=== PATIENT | male | born 1975 | race Caucasian/White ===

== ENCOUNTER 2016-10-03 17:09 | Emergency (ER) | payer MEDICAID ==
[~2016-10-03] VITALS: Ht 180.3 cm; Wt 113.4 kg
[~2016-10-03 17:09] MED LIST: DICLOFENAC SODI75 M2 PO; GABAPENTIN800 MG PO; HYDROCODONE-APA1 TA1 PO; IBU800 MG PO; LITHIUM CARB 3300 MG PO; NORCO 325 MG-101 TAB PO; NORVASC 5MG. TAB5 MG PO; OMEPRAZOLE40 MG PO; ZANAFLEX4 MG PO
--- OUTSIDE RECORDS SUMMARY | 2016-10-03 17:33 | External Medical Summary Rpt ---
Author Author , Organization [employer] Address Unknown Phone Unavailable Care Team Providers Care Evp Name Role Phone RODRIGUE HUSAIN Unavailable Unavailable AMJAD SOB, AMJAD SOB Unavailable Unavailable [facility] Unavailable Unavailable [facility], [facility] CHEO ADAMSON MD, PSC, Unavailable Unavailable CHEO ADAMSON MD, PSC ARNOLD MURPHY, ARNOLD Unavailable Unavailable MURPHY ARNOLD MURPHY, ARNOLD Unavailable Unavailable MURPHY [facility] Unavailable Unavailable MEDICAL GROUP, [facility] DANY, DANY Unavailable Unavailable CANDIDO MONTERO Unavailable Unavailable CANDIDO CRAIG Unavailable Unavailable JEFFREY STEVENSON, SHIREEN STEVENSON Unavailable Unavailable [facility] [place], Unavailable Unavailable [facility] Unavailable Unavailable [facility], [facility] Unavailable [facility] Unavailable [facility]available [facility], [facility], Unavailable Unavailable [facility]available [facility]available [facility], [facility] Unavailable Unavailable [facility], [facility] VIDHYA BRET, Unavailable Unavailable VIDHYA BRET NASEREN, NASREEN Unavailable Unavailable DEGENER, DEGENER Unavailable Unavailable DISANTIS CARLOS ALBERTO, Unavailable Unavailable DISANTIS CARLOS ALBERTO DUFF CARLOS ALBERTO, DUFF CARLOS ALBERTO Unavailable Unavailable ESCOTT EDW, ESCOTT Unavailable Unavailable EDW LEIDY, LEIDY Unavailable Unavailable LEIDY ABDULKADIR, LEIDY Unavailable Unavailable ABDULKADIR JAQUELIN RHO, JAQUELIN Unavailable Unavailable [facility] Un[facility] Un[facility], [facility], Unavailable Unavailable 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 DELONGSF NURSE PRACTITIONER [facility] Unavailable [facility]available [facility], [facility] Unavailable Unavailable [facility], [facility] Unavailable Unavailable [facility], [facility] ANITA CRI, ANIAT CRI Unavailable Unavailable [facility] Unavailable Unavailable [facility], [facility] Unavailable Unavailable [facility], [facility] Un[facility] Unavailable [facility], [facility], Unavailable Unavailable [facility], Unavailable Unavailable [facility] MATCHESWALA JERED, Unavailable Unavailable MATCHESWALA JERED SUKH, SUKH Unavailable Unavailable [facility] Unavailable Unavailable EMS, [facility] Unavailable Unavailable EMS, [facility] MENA THO, MENA Unavailable Unavailable THO RICE N., RICE N. Unavailable Unavailable SAJADI KAV, SAJADI Unavailable Unavailable KAV SCALF, SCALF Unavailable Unavailable BENÍTEZ III JAM, Unavailable Unavailable BENÍTEZ III JAM SKURKA VINOD, SKURKA Unavailable Unavailable VINOD SOKAN BAB, SOKAN BAB Unavailable Unavailable SOKAN BAB, SOKAN BAB Unavailable Unavailable [facility] Unavailable Unavailable GROUP,, [facility], [facility] Unavailable Unavailable GROUP,, [facility], [facility] Unavailable Unavailable EQUIP[facility], [facility] Unavailable Unavailable EQU[facility]ME, [facility] Unavailable Unavailable EMER[facility]ENCY [facility], [facility] BRANDON, BRANDON Unavailable Unavailable [facility], Unavailable Unavailable [facility] SWINEY, SWINEY Unavailable Unavailable WALKER FOR, WALKER Unavailable Unavailable FOR MILO ANGEL, MILO Unavailable Unavailable ANGEL DAVID ABDULKADIR, DAVID Unavailable Unavailable ABDULKADIR Purpose Continuity of Care Document - 12-29-2011 through 2016 Problems Code Diagnosis DOS Provider Status [id number] OTHER LONG 07-28-[address] [place] [address] [facility] E83.42 Hypomagnese 07-25-2016 rojelio 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 E87.6 Hypokalemia 07-25-2016 F10.129 Alcohol 07-25-2016 abuse with intoxicatio n, unspecified F14.10 Cocaine 07-25-2016 abuse, uncomplicat ed F17.200 Nicotine 07-25-2016 dependence, unspecified , uncomplicat ed F31.9 Bipolar 07-25-2016 disorder, unspecified G89.29 Other 07-25-2016 chronic pain G93.41 Metabolic 07-25-2016 encephalopa thy I10 Essential 07-25-2016 (primary) hypertensio n J18.9 Pneumonia, 07-25-2016 unspecified organism J96.00 Acute 07-25-2016 respiratory failure, unspecified whether with hypoxia or hypercapnia K21.9 Gastro-esop 07-25-2016 hageal reflux disease without esophagitis M54.9 Dorsalgia, 07-25-2016 unspecified M62.82 Rhabdomyoly 07-25-2016 sis N17.9 Acute 07-25-2016 kidney failure, unspecified T40.5X1A Poisoning 07-25-2016 by cocaine, accidental (unintentio nal), initial encounter T43.014A Poisoning 07-25-2016 by tricyclic antidepress ants, undetermine d, initial encounter W19.XXXA Unspecified 07-25-2016 fall, initial encounter [id number] PAIN IN 07-18-2016 [facility] R600 LOCALIZED 07-18-2016 [facility] EDEMA [facility] I459 CONDUCTION 07-17-2016 [facility]ORDER [facility] UNSPECIFIED [facility] I517 CARDIOMEGAL 07-17-2016 [facility] Y [facility] R000 TACHYCARDIA 07-17-2016 [facility] R4182 ALTERED 07-17-2016 [facility] M[facility] STATUS [facility] UNSPECIFIED R9431 ABNORMAL 07-17-2016 [facility] ELECTROCARD [facility] IOGRAM [facility] [id number] POISN UNS 07-17-2016 [facility] RX MEDS BIO SERV SUBSTANCE [facility] SLF-HRM INIT ENC Z4682 ENCOUNTER 07-17-2016 [facility] ADJUST [facility] NON-VASCULA R CATHETER Z950 PRESENCE OF 07-17-2016 [facility] CARDIAC [facility] PACEMAKER [facility] M7989 OTHER 07-16-2016 [facility] SPECIFIED SERV SOFT TISSUE [facility] DISORDERS N179 ACUTE 07-16-2016 [facility] K[facility] FAILURE [facility] UNSPECIFIED [id number] UNSPECIFIED 07-16-2016 [facility] FALL [facility] INITIAL [facility] ENCOUNTER O23484 PRIMARY 07-15-2016 [facility] OSTEOARTHRI SERV TIS LEFT FOUNDATION SHOULDER J9600 ACUTE 07-14-2016 [facility] NURSE RESPIRATORY PRACTITIONE FAIL UNS R GR HYPOXIA/HYP ERCAPNIA R410 DISORIENTAT 07-14-2016 [facility] ION [facility]AN UNSPECIFIED COGOVT R531 WEAKNESS 07-14-2016 [facility] COG[facility]T R918 OTHER 07-14-2016 [place] [facility] NONSPECIFIC SERV ABNORMAL [facility] FINDING OF LUNG FIELD Z9911 DEPENDENCE 07-14-2016 [facility] NURSE ON PRACTITIONE RESPIRATOR R GR VENTILATOR STATUS G8929 OTHER 06-08-[address] [facility] CHRONIC PHYSICIANS PAIN GROUP M519 UNS THOR 06-08-[address] [facility] THORACOLUMB PHYSICIANS AR GROUP LUMBOSACRAL IV DISC D/O M5417 RADICULOPAT 06-08-[address] [facility] HY PHYSICIANS LUMBOSACRAL GROUP REGION [id number] PAIN IN 05-12-[address] [facility] RIGHT ELBOW PHYSICIANS GROUP J069 ACUTE UPPER 05-04-2016 [facility] PH[facility] INFECTION UNSPECIFIED O25337 OTHER 05-04-2016 [facility] SYNOVITIS N EMERGENCY AND PHYS TENOSYNOVIT IS RIGHT FOREARM R112 NAUSEA WITH 03-27-2016 [facility] UNSPECIFIED MEDICAL GROUP [id number] PAIN IN 02-09-[address] [facility] RIGHT PHYSICIANS SHOULDER GROUP V72571 SPONDYLOSIS 12-15-2015 CHEO ADAMSON, W/O , PSC MYELOPATH/R ADICULOPATH Y LUMB RGN 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 Z5181 ENCOUNTER 12-15-2015 [facility] THERAPEUTIC LA DRUG LEVEL MONITORING R05 COUGH 11-04-[address] [facility] PHYSICIANS GROUP M479 SPONDYLOSIS 10-13-2015 [facility] UNSPECIFIED INC [id number] LACERATION 09-05-2015 [facility] W/O FB RT UPPER ARM INITIAL ENC R58 HEMORRHAGE 08-29-2015 [facility] CLASSIFIED [id number] ABRASION OF 08-29-[address] [facility] FOREARM INITIAL ENC I63931D LACERATION 08-29-2015 CANDIDO MURPHY W/O FOREIGN BODY RT FOREARM INITIAL M700FRT INTENTIONAL 08-29-2015 C[facility]O MURPHY SELF-HARM OT SHARP OBJECT INIT ENC M4316 SPONDYLOLIS 07-24-2015 [facility] REGION M5126 OTH 07-24-2015 [place] [facility] RAL DISC IMAGING ASS DISPLACEMEN T LUMBAR RGN M545 LOW BACK 07-01-2015 [facility] INC R56672 INCMPL ROT 06-19-2015 [place] [facility]RUPT JOINT LT SHOULDR SURGEO NOT TRAUMAT M06919 PAIN IN 06-10-2015 [facility] SHOULDER ASSOC M25913 OTHER 06-10-2015 [facility] SPECIFIED [facility] TENDON LEFT SHOULDER P13652 UNS ROT 06-10-2015 [facility] CUFF RADIOLOGY TEAR/RUPT ASSOC LT SHLDR NOT SPEC TRAUMAT M7582 OTHER 06-10-2015 [facility] SHOULDER [facility] LEFT SHOULDER R609 EDEMA 06-10-2015 [facility] UNSPECIFIED [facility] [id number] STRAIN MUSC 06-10-2015 [facility] TEND [facility] CUFF LT SHLDR INIT ENC V92443 PAIN IN 05-29-2015 [place] UNSPECIFIED FOOT & LIMB ANKLE CE Y71197V CONTUSION 05-29-2015 [place] UNS LESSER FOOT & TOES W/O ANKLE CE DAMAGE NAIL INIT E663 OVERWEIGHT 05-26-[address] [facility] PHYSICIANS GROUP E785 HYPERLIPIDE 05-26-2015 [facility] RO[facility]IO PHYSICIANS UNSPECIFIED LA I10 ESSENTIAL 05-26-[address] [facility] PRIMARY PHYSICIANS HYPERTENSIO GROUP N Z720 TOBACCO USE 05-26-[address] [facility] PHYSICIANS GROUP Z7689 PERSONS 05-26-2015 LAB [facility] ENCOUNTER [facility] Trendy Mondays [employer] OT CIRCUMSTANC ES P09640 PAIN IN 02-19-2015 [facility] [place] LEFT [facility]OT RADIOLOG[facility] [id number] CONTUSION 02-19-2015 SOK[facility] BAB OF LEFT FOOT INITIAL ENCOUNTER F84218T ABRASION 02-19-2015 [place] LEFT FOOT [facility] ENCOUNTER E245FFO CAUGHT 02-19-2015 [facility] BAB CRUSHED JAM/PINCHED BTWN MOV OBJ INIT ENC 2689 UNSPECIFIED 01-20-2015 [facility] VITAMIN D PHYSICIANS DEFICIENCY LA 4019 UNSPECIFIED 01-20-2015 [facility] ESSENTIAL PHYSICIANS HYPERTENSIO LA N V7644 SPECIAL 01-20-2015 [facility] SCREENING PHYS[facility]IANS MALIGNANT LA NEOPLASM OF PROSTATE 3384 CHRONIC 07-13-2014 [facility] PAIN SYNDROME 4011 ESSENTIAL 07-13-2014 [facility] HYPERTENSIO N, BENIGN 4619 ACUTE 07-13-2014 [facility] SINUSITIS, UNSPECIFIED 4659 ACUTE URIS 07-13-2014 [facility] OF UNSPECIFIED SITE 52292 UNSPECIFIED 07-09-2014 [facility] MENIERES DISEASE 95426 UNS 07-09-2014 [facility] GASTRITIS&G ASTRODUODIT IS W/O MENTION HEMORR 71095 ESOPHAGEAL 06-24-2014 LAFELY MURPHY REFLUX 61041 INSOMNIA 06-24-2014 [facility] MURPHY UNSPECIFIED 23019 BURN 06-24-2014 [facility] UNSPECIFIED DEGREE UNSPECIFIED SITE HAND 15115 CALCANEAL 04-08-2014 [facility] 7268 OTHER 04-08-2014 [facility] ENTHESOPATH PSC IES 60344 EXOSTOSIS 04-08-2014 [place] OF FOOT & UNSPECIFIED ANKLE CE SITE 7295 PAIN IN 04-08-2014 [facility] FOOT & TISSUES OF ANKLE CE LIMB V7284 UNSPECIFIED 04-04-2014 [facility] PRE-OPERATI GROUP, VE EXAMINATION 17349 OTHER JOINT 03-26-2014 [facility] NEC SHOULDER REGION 8406 SUPRASPINAT 03-26-2014 [facility] 90672 PAIN IN 03-08-2014 [facility] NE JOINT, ORTHOPAEDIC SHOULDER S PLC REGION 04357 DISORDER OF 03-01-2014 [facility] CARTILAGE UNSPECIFIED 462 ACUTE 02-21-2014 LAFELY MURPHY PHARYNGITIS 3671 MYOPIA 01-01-2014 [facility] 43644 PAIN IN 12-27-2013 [facility] JOINT, LOWER LEG 7242 LUMBAGO 12-27-2013 [facility] 5180 PULMONARY 09-29-2013 [facility] 5275 SIALOLITHIA 09-29-2013 [facility] SIS [facility] 7213 LUMBOSACRAL 09-29-2013 [facility] SPONDYLOSIS FOUNDATION WITHOUT MYELOPATHY 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-2013 [facility] N OF SERV CERVICAL FOUNDATION INTERVERTEB RAL DISC 61095 DEGEN 09-29-2013 [facility]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 01645 ALTERED 09-29-2013 [facility] MENTAL SERV STATUS FOUNDATION 64351 CLOSED 09-29-2013 [facility] FRACTURE OF SERV TWO RIBS FOUNDATION 19948 SUBDURAL 09-29-2013 [facility] HEMOR FLW SERV INJR W/O FOUNDATION OPN ICW UNS SOC 8730 OPEN WOUND 09-29-2013 [facility] SCALP SERV WITHOUT FOUNDATION [place]ATIO N 93627 OPEN WOUND 09-29-2013 [facility] FOREHEAD SERV WITHOUT FOUNDATION MENTION COMPLICATIO N 9308 FOREIGN 09-29-2013 [facility] BODY SERV OTHER&COMBI FOUNDATION DESTINY SITES EXTERNAL EYE E9889 INJURY 09-29-2013 [facility] UNSPEC SERV MEANS UNDET FOUNDATION ACC/PRPOSLY INFLICTED V714 OBSERVATION 09-29-2013 [facility] FOLLOWING SERV OTHER FOUNDATION ACCIDENT 9598 INJURY 09-28-2013 [facility] OTH&UNSPEC URBAN OTH SPEC COGOVT SITES INCL MULTIPLE Medications Na ND Rx Da Fi Fi Am Da Di Ph RX Ph St me C No te ll ll ou ys ag ar # ys at rm s nt no ma ic us Or Da si cy ia de te s n re d LI 00 05 06 60 30 00 HO Ac TH 05 -0 -0 .0 00 ME ti IU 42 5- 2- 00 06 TO ve M 52 20 20 08 WN CA 72 17 17 53 RB 5 99 PH ON AR AT MA E CY 30 0 OF MG CY CA NT P HI AN A GA 68 05 06 12 30 00 HO Ac BA 00 -0 -0 0. 00 ME ti PE 10 5- 2- 00 06 TO ve NT 00 20 20 0 08 WN IN 70 17 17 54 3 01 PH 80 AR 0 MA MG CY TA OF BL ET CY NT HI AN A IB 53 05 06 90 30 00 HO Ac UP 74 -0 -0 .0 00 ME ti RO 60 5- 2- 00 06 TO ve FE 46 20 20 08 WN N 60 17 17 54 80 5 02 PH 0 AR MG MA CY TA BL OF ET CY NT HI AN A TI 29 05 06 90 30 00 HO Ac ZA 30 -0 -0 .0 00 ME ti NI 00 5- 2- 00 06 TO ve DI 16 20 20 08 WN NE 91 17 17 54 0 03 PH HC AR L MA 4 CY MG OF TA BL CY ET NT HI AN A AM 68 05 06 30 30 00 HO Ac LO 38 -0 -0 .0 00 ME ti DI 20 5- 2- 00 06 TO ve PI 12 20 20 08 WN NE 30 17 17 54 5 04 PH BE AR SY MA LA CY TE OF 10 CY MG NT HI TA AN B A OM 68 05 06 30 30 00 HO Ac EP 46 -0 -0 .0 00 ME ti RA 20 5- 2- 00 06 TO ve ZO 39 20 20 08 WN LE 71 17 [address] AR MA 40 CY MG OF CA CY PS NT UL HI E AN A AM 00 05 06 30 30 00 HO Ac IT 78 -0 -0 .0 00 ME ti RI 11 5- 2- 00 06 TO ve PT 49 20 20 08 WN YL 00 17 17 53 IN 1 97 PH E AR HC MA L CY 10 0 OF MG CY TA NT B HI AN A IB 53 04 05 90 30 00 HO Ac UP 74 -0 -0 .0 00 ME ti RO 60 7- 5- 00 06 TO ve FE 46 20 20 07 WN N 60 17 17 93 80 5 25 PH 0 AR MG MA CY TA BL OF ET CY NT HI AN A LI 00 04 05 60 30 00 HO Ac TH 05 -0 -0 .0 00 ME ti IU 42 7- 5- 00 06 TO ve M 52 20 20 07 WN CA 72 17 17 93 RB 5 27 PH ON AR AT MA E CY 30 0 OF MG CY CA NT P HI AN A GA 68 04 05 12 30 00 HO Ac BA 00 -0 -0 0. 00 ME ti PE 10 7- 5- 06 TO ve NT 00 20 20 0 07 WN IN 70 17 17 93 3 29 PH 80 AR 0 MA MG CY TA OF BL ET CY NT HI AN A CH 00 04 05 90 30 00 HO Ac LO 83 -0 -0 .0 00 ME ti RP 20 7- 5- 06 TO ve RO 30 20 20 07 WN MA 40 17 17 93 ZI 0 30 PH NE AR MA 20 CY 0 MG OF TA CY BL NT ET HI AN A OM 68 04 05 30 30 00 HO Ac EP 46 -0 -0 .0 00 ME ti RA 20 7- 5- 00 06 TO ve ZO 39 20 20 07 WN LE 71 17 [address] AR MA 40 CY MG OF CA CY PS NT UL HI E AN A TI 29 04 05 90 30 00 HO Ac ZA 30 -0 -0 .0 00 ME ti NI 00 7- 5- 00 06 TO ve DI 16 20 20 08 WN NE 91 17 17 11 0 67 PH HC AR L MA 4 CY MG OF TA BL CY ET NT HI AN A AM 68 04 05 30 30 00 HO Ac LO 38 -0 -0 .0 00 ME ti DI 20 7- 5- 00 06 TO ve PI 12 20 20 08 WN NE 30 17 17 11 5 68 PH BE AR SY MA LA CY TE OF 10 CY MG NT HI TA AN B A AM 00 04 05 30 30 00 HO Ac IT 78 -0 -0 .0 00 ME ti RI 11 7- 5- 00 06 TO ve PT 49 20 20 08 WN YL 00 17 17 11 IN 1 69 PH E AR HC MA L CY 10 0 OF MG CY TA NT B HI AN A HY 00 03 04 [address] 60 -1 -1 .0 05 NT ti OC 33 9- 4- 00 22 UC ve OD 89 20 20 03 [place] ON 12 17 17 53 -A 1 41 CL CE IN TA IC AR NO PH PH AR MA 7. CY 5- 32 5 AM 00 03 04 30 30 00 HO Ac IT 78 -1 -0 .0 00 ME ti RI 11 0- 7- 00 06 TO ve PT 49 20 20 08 WN YL 00 17 17 11 IN 1 69 PH E AR HC MA L CY 10 0 OF MG CY TA NT B HI AN A AM 68 03 04 30 30 00 HO Ac LO 38 -1 -0 .0 00 ME ti DI 20 0- 7- 00 06 TO ve PI 12 20 20 08 WN NE 30 17 17 11 5 68 PH BE AR SY MA LA CY TE OF 10 CY MG NT HI TA AN B A TI 29 03 04 90 30 00 HO Ac ZA 30 -1 -0 .0 00 ME ti NI 00 0- 7- 00 06 TO ve DI 16 20 20 08 WN NE 91 17 17 11 0 67 PH HC AR L MA 4 CY MG OF TA BL CY ET NT HI AN A OM 68 03 04 30 30 00 HO Ac EP 46 -1 -0 .0 00 ME ti RA 20 0- 7- 00 06 TO ve ZO 39 20 20 07 WN LE 71 17 [address] AR MA 40 CY MG OF CA CY PS NT UL HI E AN A CH 00 03 04 90 30 00 HO Ac LO 83 -1 -0 .0 00 ME ti RP 20 0- 7- 00 06 TO ve RO 30 20 20 07 WN MA 40 17 17 93 ZI 0 30 PH NE AR MA 20 CY 0 MG OF TA CY BL NT ET HI AN A GA 68 03 04 12 30 00 HO Ac BA 00 -1 -0 0. 00 ME ti PE 10 0- 7- 00 06 TO ve NT 00 20 20 0 07 WN IN 70 17 17 93 3 29 PH 80 AR 0 MA MG CY TA OF BL ET CY NT HI AN A LI 00 03 04 60 30 00 HO Ac TH 05 -1 -0 .0 00 ME ti IU 42 0- 7- 00 06 TO ve M 52 20 20 07 WN CA 72 17 17 93 RB 5 27 PH ON AR AT MA E CY 30 0 OF MG CY CA NT P HI AN A IB 53 03 04 90 30 00 HO Ac UP 74 -1 -0 .0 00 ME ti RO 60 0- 7- 00 06 TO ve FE 46 20 20 07 WN N 60 17 17 93 80 5 25 PH 0 AR MG MA CY TA BL OF ET CY NT HI AN A TI 29 02 03 90 30 00 HO Ac ZA 30 -1 -1 .0 00 ME ti NI 00 0- 0- 00 06 TO ve DI 16 20 20 08 WN NE 91 17 17 11 0 67 PH HC AR L MA 4 CY MG OF TA BL CY ET NT HI AN A AM 68 02 03 30 30 00 HO Ac LO 38 -1 -1 .0 00 ME ti DI 20 0- 0- 00 06 TO ve PI 12 20 20 08 WN NE 30 17 17 11 5 68 PH BE AR SY MA LA CY TE OF 10 CY MG NT HI TA AN B A IB 53 02 03 90 30 00 HO Ac UP 74 -1 -1 .0 00 ME ti RO 60 0- 0- 00 06 TO ve FE 46 20 20 07 WN N 60 17 17 93 80 5 25 PH 0 AR MG MA CY TA BL OF ET CY NT HI AN A KE 45 02 03 12 20 00 HO Ac TO 80 -1 -1 0. 00 ME ti CO 20 0- 0- 00 06 TO ve NA 46 20 20 0 08 WN ZO 56 17 17 12 LE 4 00 PH AR 2% MA CY SH AM OF PO O CY NT HI AN A OM 68 02 03 30 30 00 HO Ac EP 46 -1 -1 .0 00 ME ti RA 20 0- 0- 00 06 TO ve ZO 39 20 20 07 WN LE 71 17 [address] AR MA 40 CY MG OF CA CY PS NT UL HI E AN A CH 00 02 03 90 30 00 HO Ac LO 83 -1 -1 .0 00 ME ti RP 20 0- 0- 00 06 TO ve RO 30 20 20 07 WN MA 40 17 17 93 ZI 0 30 PH NE AR MA 20 CY 0 MG OF TA CY BL NT ET HI AN A GA 68 02 03 12 30 00 HO Ac BA 00 -1 -1 0. 00 ME ti PE 10 0- 0- 00 06 TO ve NT 00 20 20 0 07 WN IN 70 17 17 93 3 29 PH 80 AR 0 MA MG CY TA OF BL ET CY NT HI AN A LI 00 02 03 60 30 00 HO Ac TH 05 -1 -1 .0 00 ME ti IU 42 0- 0- 00 06 TO ve M 52 20 20 07 WN CA 72 17 17 93 RB 5 27 PH ON AR AT MA E CY 30 0 OF MG CY CA NT P HI AN A AM 00 02 03 30 30 00 HO Ac IT 78 -1 -1 .0 00 ME ti RI 11 0- 0- 00 06 TO ve PT 49 20 20 08 WN YL 00 17 17 11 IN 1 69 PH E AR HC MA L CY 10 0 OF MG CY TA NT B HI AN A HY 00 02 03 [address] 60 -0 -0 .0 00 ME ti OC 33 7- 3- 00 02 TO ve OD 89 20 20 01 WN ON 12 17 17 28 -A 8 19 PH CE AR TA MA AR CY NO PH OF 7. CY 5- NT 32 HI 5 AN A MA 59 02 03 12 6 00 HO Ac ED 74 -0 -0 .0 00 ME ti NI 60 7- 3- 00 06 TO ve SO 17 20 20 08 WN NE 50 17 17 09 9 65 PH 20 AR MA MG CY TA OF BL ET CY NT HI AN A MA 64 02 03 30 14 00 HO Ac OC 98 -0 -0 .0 00 ME ti TO 00 7- 3- 00 06 TO ve ZO 30 20 20 08 WN NE 13 17 17 09 -H 0 66 PH C AR 2. MA 5% CY CR OF EA M CY NT HI AN A CE 68 02 03 21 7 00 HO Ac PH 18 -0 -0 .0 00 ME ti AL 00 7- 3- 00 06 TO ve EX 12 20 20 08 WN IN 20 17 17 09 2 67 PH 50 AR 0 MA MG CY CA OF PS UL CY E NT HI AN A AM 69 01 02 30 30 00 HO Ac LO 09 -1 -1 .0 00 ME ti DI 70 3- 0- 00 06 TO ve PI 12 20 20 07 WN NE 81 17 17 38 5 10 PH BE AR SY MA LA CY TE OF 10 CY MG NT HI TA AN B A TI 29 01 02 90 30 00 HO Ac ZA 30 -1 -1 .0 00 ME ti NI 00 3- 0- 00 06 TO ve DI 16 20 20 07 WN NE 91 17 17 38 0 08 PH HC AR L MA 4 CY MG OF TA BL CY ET NT HI AN A OM 68 01 02 30 30 00 HO Ac EP 46 -1 -1 .0 00 ME ti RA 20 3- 0- 00 06 TO ve ZO 39 20 20 07 WN LE 71 17 [address] AR MA 40 CY MG OF CA CY PS NT UL HI E AN A CH 00 01 02 90 30 00 HO Ac LO 83 -1 -1 .0 00 ME ti RP 20 3- 0- 00 06 TO ve RO 30 20 20 07 WN MA 40 17 17 93 ZI 0 30 PH NE AR MA 20 CY 0 MG OF TA CY BL NT ET HI AN A GA 68 01 02 12 30 00 HO Ac BA 00 -1 -1 0. 00 ME ti PE 10 3- 0- 00 06 TO ve NT 00 20 20 0 07 WN IN 70 17 17 93 3 29 PH 80 AR 0 MA MG CY TA OF BL ET CY NT HI AN A LI 00 01 02 60 30 00 HO Ac TH 05 -1 -1 .0 00 ME ti IU 42 3- 0- 00 06 TO ve M 52 20 20 07 WN CA 72 17 17 93 RB 5 27 PH ON AR AT MA E CY 30 0 OF MG CY CA NT P HI AN A IB 53 01 02 90 30 00 HO Ac UP 74 -1 -1 .0 00 ME ti RO 60 3- 0- 00 06 TO ve FE 46 20 20 07 WN N 60 17 17 93 80 5 25 PH 0 AR MG MA CY TA BL OF ET CY NT HI AN A AM 00 01 02 30 30 00 HO Ac IT 78 -1 -1 .0 00 ME ti RI 11 3- 0- 00 06 TO ve PT 49 20 20 07 WN YL 00 17 17 93 IN 1 26 PH E AR HC MA L CY 10 0 OF MG CY TA NT B HI AN A KE 45 01 02 12 14 00 HO Ac TO 80 -1 -1 0. 00 ME ti CO 20 3- 0- 00 06 TO ve NA 46 20 20 0 07 WN ZO 56 17 17 78 LE 4 95 PH AR 2% MA CY SH AM OF PO O CY NT HI AN A HY 00 01 02 [address] 60 -1 -0 .0 00 ME ti OC 33 1- 3- 00 02 TO ve OD 89 20 20 01 WN ON 03 17 17 25 -A 2 69 PH CE AR TA MA AR CY NO PH OF EN CY 5- NT 32 HI 5 AN A AM 68 12 01 30 30 00 HO Ac LO 38 -1 -1 .0 00 ME ti DI 20 6- 3- 00 06 TO ve PI 12 20 20 07 WN NE 30 16 17 38 5 10 PH BE AR SY MA LA CY TE OF 10 CY MG NT HI TA AN B A CH 00 12 01 90 30 00 HO Ac LO 83 -1 -1 .0 00 ME ti RP 20 6- 3- 00 06 TO ve RO 30 20 20 07 WN MA 40 16 17 76 ZI 0 04 PH NE AR MA 20 CY 0 MG OF TA CY BL NT ET HI AN A GA 68 12 01 12 30 00 HO Ac BA 00 -1 -1 0. 00 ME ti PE 10 6- 3- 00 06 TO ve NT 00 20 20 0 07 WN IN 70 16 17 76 3 03 PH 80 AR 0 MA MG CY TA OF BL ET CY NT HI AN A LI 00 12 01 60 30 00 HO Ac TH 05 -1 -1 .0 00 ME ti IU 42 6- 3- 06 TO ve M 52 20 20 07 WN CA 72 16 17 76 RB 5 02 PH ON AR AT MA E CY 30 0 OF MG CY CA NT P HI AN A AM 00 12 01 30 30 00 HO Ac IT 78 -1 -1 .0 00 ME ti RI 11 6- 3- 06 TO ve PT 49 20 20 07 WN YL 00 16 17 76 IN 1 08 PH E AR HC MA L CY 10 0 OF MG CY TA NT B HI AN A IB 53 12 01 90 30 00 HO Ac UP 74 -1 -1 .0 00 ME ti RO 60 6- 3- 00 06 TO ve FE 46 20 20 07 WN N 60 16 17 76 80 5 07 PH 0 AR MG MA CY TA BL OF ET CY NT HI AN A OM 68 12 01 30 30 00 HO Ac EP 46 -1 -1 .0 00 ME ti RA 20 6- 3- 00 06 TO ve ZO 39 20 20 07 WN LE 71 16 17 [address] AR MA 40 CY MG OF CA CY PS NT UL HI E AN A TI 29 12 01 90 30 00 HO Ac ZA 30 -1 -1 .0 00 ME ti NI 00 6- 3- 00 06 TO ve DI 16 20 20 07 WN NE 91 16 17 38 0 08 PH HC AR L MA 4 CY MG OF TA BL CY ET NT HI AN A Results Labs Lab Lab Date Result Refere Interp Status Commen Order Detail nces retati t Range on Drugs identified in Urine by Screen method (09-20-2016 16:00) Ampheta NEGATIV <1000 complet mine 017 E ed [Presen 16:00 ce] in Urine by Screen method 11-Hydr NEGATIV <50 complet oxy 017 E ed delta-9 16:00 tetrahy drocann abinol [Presen ce] in Unspeci fied specime n Magnesium SerPl-mCnc (07-17-2016 02:40) Magnesi 1.6 1.9-2.4 complet um 017 mg/dL ed SerPl-m 02:40 Cnc Ca-I SerPl ISE-sCnc (07-17-2016 02:40) Ca-I 4.2 4.6-5.1 complet SerPl 017 mg/dL ed ISE-sCn 02:40 c Sodium Ur-sCnc (07-16-2016 15:38) Sodium 156 complet Ur-sCnc 017 mmol/L ed 15:38 Creat Ur-mCnc (07-16-2016 15:38) Creat 78 complet Ur-mCnc 017 mg/dL ed 15:38 Phosphate SerPl-mCnc (07-16-2016 02:21) Phospha 4.2 2.5-4.5 complet te 017 mg/dL ed SerPl-m 02:21 Cnc Magnesium SerPl-mCnc (07-16-2016 02:21) Magnesi 1.8 1.9-2.4 complet um 017 mg/dL ed SerPl-m 02:21 Cnc Ca-I SerPl ISE-sCnc (07-16-2016 02:21) Ca-I 4.3 4.6-5.1 complet SerPl 017 mg/dL ed ISE-sCn 02:21 c MDRO Wnd (07-15-2016 04:38) Bacteri [id number] complet a XXX 017 00 not ed Anaerob 04:38 isolate e+Aerob d e Cult (qualif ier value) SCT NMDR NO MULTI DRUG RESISTA NT ORGANIS MS ISOLATE D L CC XXX NOTAP complet VC-aCnc 017 NOT ed 04:38 APPLICA BLE L Phosphate SerPl-mCnc (07-14-2016 22:58) Phospha 3.0 2.5-4.5 complet te 017 mg/dL ed SerPl-m 22:58 Cnc Prealb SerPl-mCnc (07-14-2016 22:58) Prealb 20.0 20-41 complet SerPl-m 017 mg/dL ed Cnc 22:58 Magnesium SerPl-mCnc (07-14-2016 22:58) Magnesi 1.9 1.9-2.4 complet um 017 mg/dL ed SerPl-m 22:58 Cnc CK SerPl-cCnc (07-14-2016 22:58) CK 373 U/L 49-320 complet SerPl-c 017 ed Cnc 22:58 Sodium Ur-sCnc (07-14-2016 22:58) Sodium > 250 complet Ur-sCnc 017 mmol/L ed 22:58 Creat Ur-mCnc (07-14-2016 22:58) Creat 206 complet Ur-mCnc 017 mg/dL ed 22:58 Ca-I SerPl ISE-sCnc (07-14-2016 22:58) Ca-I 3.9 4.6-5.1 complet SerPl 017 mg/dL ed ISE-sCn 22:58 c Lactate Bld-sCnc (07-14-2016 20:32) Lactate 1.9 complet 017 mmol/L ed Bld-sCn 20:32 c CK SerPl-cCnc (07-14-2016 14:14) CK 496 U/L 49-320 complet SerPl-c 017 ed Cnc 14:14 Salicylates SerPl-sCnc (07-14-2016 14:14) Salicyl < 0.3 0-25.0 complet ates 017 mg/dL ed SerPl-s 14:14 Cnc Acetamin SerPl-mCnc (07-14-2016 14:14) Acetami < 15.0 10-30 complet n 017 ug/mL ed SerPl-m 14:14 Cnc Ethanol Bld GC-mCnc (07-14-2016 14:14) Ethanol 225.0 NEGATIV complet Bld 017 mg/dL E ed GC-mCnc 14:14 Lactate Bld-sCnc (07-14-2016 14:14) Lactate 2.4 complet 017 mmol/L ed Bld-sCn 14:14 c Comprehensive metabolic 1998 panel in Serum or Plasma (12-29-2011 15:20) Sodium 135 136 - Low complet [Moles/ 012 mmol/L 145 ed volume] 15:20 in Serum or Plasma Potassi 4.0 3.50 - complet um 012 mmol/L 5.10 ed [Moles/ 15:20 volume] in Serum or Plasma Chlorid 100 98 - complet e 012 mmol/L 107 ed [Moles/ 15:20 volume] in Serum or Plasma TOTAL 28 21 - 32 complet CO2 012 mmol/L ed 15:20 ANION 11 5 - 15 complet GAP 012 mmol/L ed 15:20 Glucose 99 70 - complet 012 mg/dl 120 ed [Mass/v 15:20 olume] in Serum or Plasma Urea 11 7 - 18 complet nitroge 012 mg/dl ed n 15:20 [Mass/v olume] in Serum or Plasma Creatin 1.2 0.60 - complet ine 012 mg/dl 1.30 ed [Mass/v 15:20 olume] in Serum or Plasma AGE [age] yrs complet 012 ed 15:20 GFR 60 complet 012 ml/min ed 15:20 Calcium 8.5 8.50 - complet 012 mg/dl 10.10 ed [Mass/v 15:20 olume] in Serum or Plasma Bilirub 0.6 0.20 - complet in.tota 012 mg/dl 1.0 ed l 15:20 [Mass/v olume] in Serum or Plasma Asparta 19 IU/L 15 - 37 complet te 012 ed aminotr 15:20 ansfera se [Enzyma tic activit y/volum e] in Serum or Plasma Alanine 35 IU/L 30 - 65 complet 012 ed aminotr 15:20 ansfera se [Enzyma tic activit y/volum e] in Serum or Plasma Alkalin 111 50 - complet e 012 IU/L 136 ed phospha 15:20 tase [Enzyma tic activit y/volum e] in Serum or Plasma Protein 7.6 6.40 - complet 012 g/dl 8.20 ed [Mass/v 15:20 olume] in Serum or Plasma Albumin 4.0 3.40 - complet 012 g/dl 5.0 ed [Mass/v 15:20 olume] in Serum or Plasma GLOBULI 3.6 1.30 - High complet N 012 g/dl 3.50 ed 15:20 A/G 1.1 1.0 - complet RATIO 012 ratio 3.90 ed 15:20 BLDo complet 012 GLOMERU ed 15:20 LAR FILTRAT ION RATE INTERPR ETATION BLDx Normal complet 012 Range: ed 15:20 60 Ml/min/ 1.73 sq meters If complet 012 patient ed 15:20 is Elizabeth n, multipl y GFR by 1.120. *GFR complet 012 only ed 15:20 applies to adults over the age 18. CBC W DIFF AUTOMATED (12-29-2011 15:20) Leukocy 8.5 4.60 - complet roberto 012 K/uL 10.20 ed [#/volu 15:20 me] in Blood by Automat ed count Erythro 5.05 4.04 - complet cytes 012 M/uL 6.13 ed [#/volu 15:20 me] in Blood by Automat ed count Hemoglo 15.4 12.20 - complet bin 012 g/dL 18.10 ed [Mass/v 15:20 olume] in Blood Hematoc 44 % 37.70 - complet rit 012 53.70 ed [Volume 15:20 Fractio n] of Blood by Automat ed count Erythro 86.9 fL 80.0 - complet cyte 012 97.0 ed mean 15:20 corpusc ular volume [Entiti c volume] by Automat ed count Erythro 30.5 pg 27.0 - complet cyte 012 31.20 ed mean 15:20 corpusc ular hemoglo bin [Entiti c mass] by Automat ed count Erythro 35.1 31.80 - complet cyte 012 g/dL 35.40 ed mean 15:20 corpusc ular hemoglo bin concent ration [Mass/v olume] by Automat ed count Erythro 13.9 % 11.60 - complet cyte 012 14.80 ed distrib 15:20 ution width [Ratio] by Automat ed count Platele 186 142 - complet ts 012 K/uL 424 ed [#/volu 15:20 me] in Blood by Automat ed count Lymphoc 24.6 % 10.0 - complet ytes/10 012 50.0 ed 0 15:20 leukocy roberto in Blood by Automat ed count Monocyt 5.4 % 0.0 - complet es/100 012 12.0 ed leukocy 15:20 roberto in Blood by Automat ed count Neutrop 68.7 % 37.0 - complet hils.ba 012 80.0 ed nd 15:20 form/10 0 leukocy roberto in Blood by Manual count Eosinop 0.70 % 0.00 - complet hils/10 012 7.00 ed 0 15:20 leukocy roberto in Blood by Automat ed count Basophi 0.60 % 0.00 - complet ls/100 012 2.50 ed leukocy 15:20 roberto in Blood by Automat ed count Lymphoc 2.08 0.60 - complet ytes/10 012 K/uL 3.40 ed 0 15:20 leukocy roberto in Blood by Automat ed count Monocyt 0.46 0.00 - complet es/100 012 K/uL 0.90 ed leukocy 15:20 roberto in Blood by Automat ed count Neutrop 5.82 2.00 - complet hils.ba 012 K/uL 6.90 ed nd 15:20 form/10 0 leukocy roberto in Blood by Manual count Eosinop 0.06 0.00 - complet hils/10 012 K/uL 0.70 ed 0 15:20 leukocy roberto in Blood by Automat ed count Basophi 0.05 0.00 - complet ls/100 012 K/uL 0.20 ed leukocy 15:20 roberto in Blood by Automat ed count Manual NOT complet Diff 012 INDICAT ed 15:20 ED Urinalysis complete panel in Urine (12-29-2011 14:20) Color LT. NL: complet of 012 YELL Negativ ed Urine 14:20 e Appeara CLEAR NL: complet nce of 012 Negativ ed Urine 14:20 e Glucose NEG NL: complet 012 Negativ ed [Mass/v 14:20 e olume] in Urine by Test strip Bilirub NEG NL: complet in 012 Negativ ed [Presen 14:20 e ce] in Urine by Test strip Ketones NEG NL: complet 012 Negativ ed [Presen 14:20 e ce] in Serum or Plasma Specifi 1.020 NL: complet c 012 1.00 >= ed gravity 14:20 1.030 of Urine Hemoglo NEG NL: complet bin 012 Negativ ed [Presen 14:20 e ce] in Urine by Test strip pH of 7.0 NL: complet Urine 012 ed by Test 14:20 strip Protein NEG NL: complet 012 Negativ ed [Presen 14:20 e ce] in Urine by Test strip Urobili 0.2 NL: 0.2 complet nogen 012 - 1.0 ed [Mass/v 14:20 olume] in Urine by Test strip Nitrite NEG NL: complet 012 Negativ ed [Presen 14:20 e ce] in Urine by Test strip Leukocy NEG NL: complet roberto 012 Negativ ed [#/volu 14:20 e me] in Blood by Automat ed count MICROSC See complet OPIC 012 ed 14:20 Leukocy NEGATIV NL: complet roberto 012 E NEGATIV ed [#/volu 14:20 E me] in Blood by Automat ed count Erythro NEGATIV NL: complet cytes 012 E NEGATIV ed [#/volu 14:20 E me] in Blood by Automat ed count Epithel NEGATIV NL: complet ial 012 E NEGATIV ed cells 14:20 E [#/area ] in Urine sedimen t by Microsc opy high power field Bacteri NEGATIV NL: complet a 012 E NEGATIV ed [#/area 14:20 E ] in Urine sedimen t by Microsc opy high power field Mucus NEGATIV NL: complet [Presen 012 E NEGATIV ed ce] in 14:20 E Urine sedimen t by Light microsc opy Yeast NEGATIV NL: complet [Presen 012 E NEGATIV ed ce] in 14:20 E Unspeci fied specime n by Wet prepara tion Casts NEGATIV NL: complet 012 E NEGATIV ed 14:20 E Crystal NEGATIV NL: complet s 012 E NEGATIV ed [type] 14:20 E in Urine sedimen t by Light microsc opy METH OF VOIDED complet ROBERTH 012 ed 14:20 CULTURE NOT complet SETUP 012 INDIC ed 14:20 Procedures Procedure DOS Code Location Performer Comment DRUG TEST 69297 [facility] TAMEZ [facility]SMV [facility] QUAL DIR INC INC OPTICAL OBS PER DAY MRI LOWER 17147 [place] EXTREM 7 MEDICAL OTH/THN SERV JT W/O & FOUNDATIO W/[place] [address] [place] JT LOWER 7 MEDICAL EXTREM SERV W/O & FOUNDATIO W/CONTRAS N T MATRL ECG 79486 [place] MANDA ROUTINE 7 MEDICAL ECG SERV W/LEAST FOUNDATIO 12 LDS [place] [address] [place] NASREEN RETROPERI 7 MEDICAL TONEAL SERV REAL TIME FOUNDATIO W/IMAGE N COMPLETE RADEX 50563 [place] ANKLE 7 MEDICAL COMPLETE SERV MINIMUM 3 FOUNDATIO VIEWS N RADEX 18546 [place] DANY SHOULDER 7 MEDICAL COMPLETE SERV MINIMUM 2 FOUNDATIO VIEWS N GROUND A0425 TABITH[facility] TABITHA MILEAGE 7 [place] FAY[place] PER URBAN URBAN STATUTE COGOVT COGOVT MILE CRITICAL 16620 KMS[facility] DEGENER CARE 7 NURSE ILL/INJUR PRACTITIO ED NER GR PATIENT INIT 30-74 MIN AMB A0427 TABITHA TABITHA SERVICE 7 FAYETTE FAYETTE ALS URBAN URBAN EMERGENCY [place] [address] [place] ALHAJER[place] HEAD/BRAI 7 MEDICAL N W/O SERV CONTRAST FOUNDATIO MATERIAL N RADIOLOGI 71048 [place] SUKH C 7 MEDICAL EXAMINATI SERV ON CHEST FOUNDATIO SINGLE N VIEW FRONTAL DRUG TEST 98475 JOI TAMEZ PRSMV 7 [facility] QUAL DIR INC INC OPTICAL OBS PER DAY DRUG 04891 JOI TAMEZ SCREENING 7 [facility] OPIOIDS INC INC & OPIATE ANALOGS 5/MORE DRUG TEST 22326 JOI TAMEZ PRSMV 7 [facility] QUAL DIR INC INC OPTICAL OBS PER DAY RADEX 01352 [facility] [place] SCALF ELBOW 7 RADIOLOGY COMPLETE MINIMUM 3 VIEWS DRUG TST G0477 COMBINED COMBINED PRESUMP;C 6 PHYSICIAN PHYSICIAN PBL BEING S LA S LA READ DC OPT OBV ONLY THERAPEUT [address] [facility] LEIDY HOWARD 6 PHYSICIAN ABDULKADIR PROPHYLAC S GROUP TIC/DX INJECTION SUBQ/IM INJECTION J0696 [facility] LEIDY 6 PHYSICIAN ABDULKADIR CEFTRIAXO S GROUP NE SODIUM PER 250 MG INJECTION J1040 JOI TAMEZ 6 [facility] METHYLPRE INC INC DNISOLONE ACETATE 80 MG NJX 13330 [facility] SILVERIO CARLOS ALBERTO DX/THER 6 MD SNOW, AGT PVRT PSC FACET JT LMBR/SAC 3+ LEVEL NJX 27267 [facility] SILVERIO CARLOS ALBERTO DX/THER 6 MD SNOW, AGT PVRT PSC FACET JT LMBR/SAC 1 LEVEL NJX 16463 [facility] SILVERIO CARLOS ALBERTO DX/THER 6 MD SNOW, AGT PVRT PSC FACET JT LMBR/SAC 2ND LEVEL DRUG TST G0477 COMBINED COMBINED PRESUMP;C 6 PHYSICIAN PHYSICIAN PBL BEING S LA S LA READ DC OPT OBV ONLY DRUG TST G0477 JOI TAMEZ PRESUMP;C 6 [facility] PBL BEING INC INC READ DC OPT OBV ONLY GROUND A0425 [facility] STATUTE EMS EMS MILE AMBULANCE A0429 [facility] SERVICE 6 [facility] EMERGENCY EMS EMS TRANSPORT SMPL 92384 REY REY REPAIR 6 JEFFREY JEFFREY SCALP/NEC K/AX/WOODROW T/TRUNK 2.6-7.5CM 3D 44898 [facility] KEE RENDERING 6 MEDICAL BRET W/INTERP IMAGING & ASS POSTPROCE SS SUPERVISI ON MRI 13254 JOI TAMEZ SPINAL 6 [facility] CANAL INC INC LUMBAR W/O CONTRAST MATERIAL DRUG TST G0477 JOI TAMEZ PRESUMP;C 6 [facility] PBL BEING INC INC READ DC OPT OBV ONLY DRUG 21025 JOI TAMEZ SCREENING 6 [facility] OPIOIDS INC INC & OPIATE ANALOGS 5/MORE APPL 47919 JOI TAMEZ MODALITY 6 [facility] 1/> AREAS INC INC TRACTION MECHANICA L THERAPEUT 03446 JOI TAMEZ IC PX 1/> 6 [facility] AREAS INC INC EACH 15 MIN EXERCISES E-STIM G0283 JOI TAMEZ 1/> AREAS 6 [facility] OTH THAN INC INC WND CARE PART TX PLAN APPLICATI 62329 JOI TAMEZ ON 6 [facility] MODALITY INC INC 1/> AREAS HOT/COLD PACKS APPLICATI 69702 JOI TAMEZ ON 6 [facility] MODALITY INC INC 1/> AREAS HOT/COLD PACKS E-STIM G0283 JOI TAMEZ 1/> AREAS 6 [facility]OS[facility] OTH THAN INC INC WND CARE PART TX PLAN THERAPEUT 33038 JOI TAMEZ IC PX 1/> 6 [facility] AREAS INC INC EACH 15 MIN EXERCISES APPL 74026 JOI TMAEZ MODALITY 6 [facility] 1/> AREAS INC INC TRACTION MECHANICA L ARTHROCEN 96232 [facility] PAREKHIS 6 BONE & BONE & ASPIR&/IN JOINT JOINT J MAJOR SURGEO SURGEO JT/BURSA W/O US INJECTION J1040 [facility] FUCHS 6 BONE & KAV METHYLPRE JOINT DNISOLONE SURGEO ACETATE 80 MG APPL 48385 JOI TAMEZ MODALITY 6 [facility] 1/> AREAS INC INC TRACTION MECHANICA L THERAPEUT 34557 JOI TAMEZ IC PX 1/> 6 [facility] AREAS INC INC EACH 15 MIN EXERCISES E-STIM G0283 JOI TAMEZ 1/> AREAS 6 [facility]OS[facility] OTH THAN INC INC WND CARE PART TX PLAN APPLICATI 67163 JOI TAMEZ ON 6 [facility] MODALITY INC INC 1/> AREAS HOT/COLD PACKS APPLICATI 45464 JOI TAMEZ ON 6 [facility] MODALITY INC INC 1/> AREAS HOT/COLD PACKS MANUAL 72922 JOI TAMEZ THERAPY 6 [facility] TQS 1/> INC INC REGIONS EACH 15 MINUTES E-STIM G0283 JOI TAMEZ 1/> AREAS 6 [facility] OTH THAN INC INC WND CARE PART TX PLAN THERAPEUT 40729 JOI TAMEZ IC PX 1/> 6 [facility] AREAS INC INC EACH 15 MIN EXERCISES THERAPEUT 40634 JOI TAMEZ IC PX 1/> 6 [facility] AREAS INC INC EACH 15 MIN EXERCISES E-STIM G0283 JOI TAMEZ 1/> AREAS 6 [facility]OS[facility] OTH THAN INC INC WND CARE PART TX PLAN APPLICATI 87236 JOI TAMEZ ON 6 [facility] MODALITY INC INC 1/> AREAS HOT/COLD PACKS APPL 36810 JOI TAMEZ MODALITY 6 [facility] 1/> AREAS INC INC TRACTION MECHANICA L ARTHROCEN 58201 [facility] CENTRAL TESIS 6 RASTAFARIAN RASTAFARIAN ASPIR&/IN HOSP HOSP J MAJOR JT/BURSA W/O US FLUOROSCO 54739 [facility] BENÍTEZ PIC 6 RADIOLOGY III JAM GUIDANCE ASSOC NEEDLE PLACEMENT [place] ANY 15219 [facility] RICE N. JT UPPER 6 RADIOLOGY EXTREMITY ASSOC W/O & W/CONTR MATRL THERAPEUT 93663 JOI JOI IC PX 1/> 6 [facility] AREAS INC INC EACH 15 MIN EXERCISES APPLICATI 70588 JOI JOI ON 6 [facility] MODALITY INC INC 1/> AREAS HOT/COLD PACKS E-STIM G0283 JOI JOI 1/> AREAS 6 [facility]OS[facility] OTH THAN INC INC WND CARE PART TX PLAN PHYSICAL 25565 JOI JOI THERAPY 6 [facility] EVALUATIO INC INC N RADEX 57613 [place] FOOT 6 FOOT & VINOD COMPLETE ANKLE CE MINIMUM 3 [place] [address] COMBINED COMBINED FREE 6 PHYSICIAN PHYSICIAN THYROXINE S LA S LA DRUG TST G0477 JOI TAMEZ PRESUMP;C 6 [facility] PBL BEING INC INC READ DC OPT OBV ONLY LIPID 38632 COMBINED COMBINED PANEL 6 PHYSICIAN PHYSICIAN S LA S LA DRUG 01632 LAB NAOMY LAB NAOMY SCREEN 6 ELIZABETH ELIZABETH QUANTITAT HOLDINGS HOLDINGS JENNA LITHIUM RADEX 85102 [place] SAJADI SHOULDER 6 BONE & KAV COMPLETE JOINT MINIMUM 2 SURGEO VIEWS AMBULANCE A0429 [facility] SERVICE 5 [facility] EMERGENCY EMS EMS TRANSPORT GROUND A0425 [facility] MILEAGE 5 [facility] STATUTE EMS EMS MILE RADEX 16870 [facility] [place] JAQUELIN FOOT 5 RADIOLOGY RHO COMPLETE MINIMUM 3 [place] [address] COMBINED COMBINED FREE 5 PHYSICIAN PHYSIC[place] [address] COMBINED COMBINED TRIIODOTH 5 PHYSICIAN PHYSICIAN YRONINE S LA S LA T3 [place] [address] [place] [address] COMBINED COMBINED TESTOSTER 5 PHYSICIAN PHYSICIAN ONE TOTAL S LA S LA LIPID 59972 COMBINED COMBINED PANEL 5 PHYSICIAN PHYSICIAN S LA S LA PROSTATE G0103 COMBINED COMBINED CANCER 5 PHYSICIAN PHYSICIAN SCREENING S LA S LA ; PSA TEST RESECTION 14657 [facility] CONDYLE 4 FOOT & VINOD DISTAL ANKLE CE END PHALANX EACH TOE ANES OPEN 81761 ANESTHESI IYER GRAHAM PROC 4 A BONES ASSOCIATE LOWER S PSC LEG/ANKLE /FOOT NOS CRTCHS E0114 [place] UNDARM 4 HOME HOME OTH THAN MEDICAL MEDICAL WOOD PAIR EQUIPME EQUIPME PAD TIP&HNDGR IP BLOOD 79910 [facility] HICKS COUNT 4 LAB LAB COMPLETE PARTNERS PARTNERS AUTO&AUTO GROUP, GROUP, DIFRNTL WBC COMPREHEN 44496 [facility]T HICKS SIVE 4 LAB LAB METABOLIC PARTNERS PARTNERS PANEL GROUP, GROUP, COLLECTIO 16554 ABIQUIU AMJA SOB N VENOUS 4 DIABETIC BLOOD CENTER VENIPUNCT URE ARTHROSCO 65492 [facility] PY 4 SURGERY SURGERY SHOULDER CENTER CENTER SURG DEBRIDEME NT LIMITED ARTHROSCO 08971 [facility] 4 [place] ANGEL SHOULDER ORTHOPAED SURGICAL ICS PLC CAPSULORR HAPHY SHOULDER L3670 [facility] ORTHOSIS 4 [facility] ACROMIO/C ORTHOPAED ORTHOPAED LAVICULAR IC IC PREFAB RADEX 14416 [facility] ANKLE 4 FOOT & VINOD COMPLETE ANKLE CE MINIMUM 3 VIEWS RADIOLOGI 90961 [facility] C 4 FOOT & VINOD EXAMINATI ANKLE CE ON FOOT 2 VIEWS INJ A9577 [facility] GADOBENAT 4 [facility] E DIMEGLUMI NE MULTIHANC [place] ANY [address] [facility] JT UPPER 4 EAST EAST EXTREMITY W/O & W/CONTR MATRL RADEX TOE 32851 [facility] [place] MINIMUM 4 [place] ANGEL 2 VIEWS ORTHOPAED ICS PLC RADEX 37205 [facility] SHOULDER 4 [place] COMPLETE ORTHOPAED MINIMUM 2 ICS PLC VIEWS OPHTH 24956 [facility] 4 GRE GRE XM&EVAL COMPRE NEW PT 1/> [place] [address] [place] MAXILLOFA 4 MEDICAL EDW CIAL W/[place] [address] [place] ANGIOGRAP 4 MEDICAL EDW HY HEAD SERV W/CONTRAS FOUNDATIO T/NONCONT N RAST CT LUMBAR 44009 [place] SPINE 4 MEDICAL EDW W/O SERV CONTRAST FOUNDATIO MATERIAL N RADIOLOGI 36728 [place] DISANTIS C 4 MEDICAL CARLOS ALBERTO EXAMINATI SERV ON PELVIS FOUNDATIO 1/[address] [place] [address] [place] HEAD/BRAI 4 MEDICAL EDW N W/O SERV CONTRAST FOUNDATIO MATERIAL N SIMPLE 49968 [place] REPAIR 4 MEDICAL SET F/E/E/N/L SERV /M FOUNDATIO 2.6CM-5.0 N CM SMPL 41040 [place] REPAIR 4 MEDICAL SET SCALP/NEC SERV K/AX/WOODROW FOUNDATIO T/[place] 2.[place] [address] [place] DAVID ABDOMEN & 4 MEDICAL ABDULKADIR PELVIS SERV W/[place] [address] [place] ANGIOGRAP 4 MEDICAL EDW HY NECK SERV W/CONTRAS FOUNDATIO T/[place] [address] [place] ANGIOGRAP 4 MEDICAL ABDULKADIR HY CHEST SERV W/CONTRAS [place] [address] [place] CERVICAL 4 MEDICAL EDW SPINE W/O SERV CONTRAST FOUNDATIO MATERIAL N RADIOLOGI 01862 [place] DISANTIS C 4 MEDICAL CARLOS ALBERTO EXAMINATI SERV ON CHEST [place] [address] [place] THORACIC 4 MEDICAL EDW SPINE W/O SERV CONTRAST FOUNDATIO MATERIAL N AMB A0427 TABITHA TABITHA SERVICE 4 FAYETTE FAYETTE ALS [facility] EMERGENCY COGOVT COGOVT TRANSPORT LEVEL 1 GROUND A0425 TABITHA TABITHA MILEAGE 4 FAYETTE FAYETTE PER URBAN URBAN STATUTE COGOVT COGOVT MILE Encounters Encounter Start End Date Code Location Performer Type Date HOSPITAL JOI - 7 7 [facility] OUTPATIEN INC T OFFICE [address] [facility] OUTPATIEN 7 7 PHYSICIAN T VISIT S GROUP 25 MINUTES HOSPITAL JOI - 7 7 [facility] OUTPATIEN INC T OFFICE [address] [facility] OUTPATIEN 7 7 PHYSICIAN T VISIT S GROUP 25 MINUTES HOSPITAL JOI - 7 7 [facility] OUTPATIEN INC T EMERGENCY 07320 [facility] 7 7 JEWEL DEPARTMEN EMERGENCY T VISIT PHYS HIGH/URGE NT SEVERITY OFFICE 58060 [facility] OUTPAT[facility] 6 6 [facility]ALTH [facility] T VISIT MEDICAL 15 GROUP MINUTES OFFICE [address] [facility] OUTPATIEN 6 6 PHYSICIAN ABDULKADIR T VISIT S GROUP 15 MINUTES OFFICE 59505 JOI OUTPATIEN 6 6 MEM [facility] T VISIT INC 10 MINUTES OFFICE 33978 [facility] SILVERIO CARLOS ALBERTO OUTPATIEN 6 6 MD SNOW, T VISIT PSC 15 MINUTES HOSPITAL JOI - 6 6 [facility] OUTPATIEN INC T OFFICE [address] [facility] OUTPATIEN 6 6 PHYSICIAN T VISIT S GROUP 15 MINUTES HOSPITAL JOI - 6 6 [facility] OUTPATIEN INC T HOSPITAL JOI - 6 6 [facility] OUTPATIEN INC T OFFICE 74971 CHEOMAURISIO JEAN OUTPATIEN 6 6 MD SNOW, T NEW 45 PSC MINUTES OFFICE 43754 JOI OUTPATIEN 6 6 [facility] T VISIT INC 10 MINUTES HOSPITAL JOI - 6 6 [facility] OUTPATIEN INC T OFFICE 99223 [facility] OUTPATIEN 6 6 PHYSICIAN ABDULKADIR T VISIT S GROUP 10 MINUTES OFFICE 53670 AARTI BROUSSARD OUTPATIEN 6 6 MURPHY MURPHY T VISIT 25 MINUTES EMERGENCY 92892 CANDIDO REY 6 6 JEFFREY [facility] DEPARTMEN T VISIT MODERATE SEVERITY OFFICE [address] [facility] OUTPATIEN 6 6 PHYSICIAN ABDULKADIR T VISIT S GROUP 10 MINUTES HOSPITAL JOI - 6 6 MEM [facility] OUTPATIEN [facility] T OFFICE [address] [facility] OUTPATIEN 6 6 PHYSICIAN ABDULKADIR T VISIT S GROUP 10 MINUTES HOSPITAL JOI - 6 6 MEM [facility] OUTPATIEN [facility]ITAL JOI - 6 6 [facility]PATIEN [facility] T OFFICE 814[address] [facility] OUTPATIEN 6 6 PHYSICIAN ABDULKADIR T VISIT S GROUP 10 MINUTES OFFICE 90180 [place] SAJADI OUTPATIEN 6 6 BONE & KAV T VISIT JOINT 15 SURGEO MINUTES HOSPITAL CENTRAL - 6 6 RAST[facility]IAN OUTPATIEN [facility] JOI - 6 6 MEM [facility] OUTPATIEN [facility] T OFFICE 04760 [facility] OUTPATIEN 6 6 FOOT & VINOD T VISIT ANKLE CE 15 MINUTES HOSPITAL JOI - 6 6 [facility]EN [facility] T OFFICE [address] [facility] OUTPATIEN 6 6 PHYSICIAN ABDULKADIR T NEW 30 S GROUP MINUTES [facility]50 [facility] 6 BONE & KAV T NEW 30 JOINT MINUTES SURGEO EMERGENCY 85145 JOI 5 5 [facility]ISIT LOW/MODER SEVERITY EMERGENCY 94380 SHEREE GALEANO 5 5 [facility]IC[facility] VIS[facility] MODERATE SEVERITY HOSPITAL JOI - 5 5 MEM [facility] OUTPATIEN INC T EMERGENCY 25451 [facility] 5 5 DEPARTMEN T VISIT MODERATE SEVERITY OFFICE 24434 [facility]I BROUSSARD OUTPATIEN 5 5 MURPHY MURPHY T VISIT 15 MINUTES OFFICE 73199 [facility]ART[facility] BROUSSARD OUTPATIEN 5 5 MURPHY MURPHY T VISIT 15 MINUTES OFFICE 67653 [facility]ART[facility] BROUSSARD OUTPATIEN 5 5 MURPHY MURPHY T VISIT 15 MINUTES OFFICE 35031 [facility] OUTPATI[facility] 4 4 DIABETIC T NEW 30 CENTER MINUTES OFFICE [id number] [facility] 4 4 [place] T VISIT ORTHOPAED 25 [facility] MINUTES OFFICE 76643 [facility] OUT[facility] 4 4 FOOT & VINOD T NEW 30 ANKLE CE [facility] - 4 4 EAST OUTPATIEN T OFFICE 84039 [facility] 4 4 [place] T VISIT ORTHOPAED 15 [facility] MINUTES OFFICE 36739 [facility] BROUSSARD OUTPATIEN 4 4 MURPHY MURPHY T VISIT 15 MINUTES OFFICE 38375 [facility] 4 4 [place] ANGEL ION ORTHOPAED NEW/ESTAB I[facility] PLC PATIENT 40 MIN OFFICE 85131 [facility] BROUSSARD OUTPATIEN 4 4 MURPHY MURPHY T NEW 30 MINUTES OFFICE 55255 [place] [facility] CONS[facility] 4 4 MEDICAL THO ION SERV NEW/ESTAB FOUNDATIO PATIENT N 40 MIN EMERGENCY [id number] USHA LEHMAN 4 4 MEDICAL SET DEPARTMEN SERV T VISIT FOUNDATIO HIGH/URGE N NT SEVERITY
--- OUTSIDE RECORDS SUMMARY | 2016-10-03 17:33 | External Medical Summary Rpt ---
Author Author , Organization [employer] Address Unknown Phone Unavailable Care Team Providers Care Patent Leather Sorter Name Role Phone RODRIGUE HUSAIN Unavailable Unavailable AMJAD SOB, AMJAD SOB Unavailable [facility]available [facility] Unavailable Unavailable [facility], [facility] CHEO ADAMSON MD, PSC, Unavailable Unavailable CHEO ADAMSON MD, PSC ARNOLD MURPHY, ARNOLD Unavailable Unavailable MURPHY ARNOLD MURPHY, ARNOLD Unavailable Unavailable MURPHY [facility] Unavailable Unavailable MEDICAL GROUP, [facility] DANY, DANY Unavailable Unavailable CANDIDO MONTERO Unavailable Unavailable CANDIDO CRAIG Unavailable Unavailable JEFFREY STEVENSON, SHIREEN STEVENSON Unavailable Unavailable [facility], Unavailable Unavailable [facility] Unavailable Unavailable [facility], [facility] Unavailable [facility] Unavailable Unavailable [facility]OC, [facility], Unavailable Unavailable [facility] Unavailable Unavailable [facility], [facility] Unavailable Unavailable [facility], [facility] VIDHYA BRET, Unavailable Unavailable VIDHYA BRET NASREEN, NASREEN Unavailable Unavailable DEGENER, DEGENER Unavailable Unavailable DISANTIS CARLOS ALBERTO, Unavailable Unavailable DISANTIS CARLOS ALBERTO DUFF CARLOS ALBERTO, DUFF CARLOS ALBERTO Unavailable Unavailable ESCOTT EDW, ESCOTT Unavailable Unavailable EDW LEIDY, LEIDY Unavailable Unavailable LEIDY ABDULKADIR, LEIDY Unavailable Unavailable ABDULKADIR JAQUELIN RHO, JAQUELIN Unavailable Unavailable [facility] Un[facility] Un[facility], [facility], Unavailable Unavailable [facility] MANDA, MANDA Unavailable Unavailable [facility] Unavailable Unavailable SUR[facility], [facility] Unavailable Unavailable [facility] [place], [facility] Unavailable Unavailable [facility], [facility] Unavailable Unavailable [facility], [facility] NURSE Unavailable Unavailable PRACTITIONER CHRISTY DELONGSF NURSE PRACTITIONER [facility] Unavailable Unavailable [facility], [facility] Unavailable Unavailable [facility], [facility] Unavailable Unavailable [facility], [facility] ANITA CRI, ANITA CRI Unavailable Unavailable [facility] Unavailable Unavailable [facility], [facility] Unavailable Unavailable [facility], [facility] Un[facility] Unavailable [facility], [facility], Unavailable Unavailable [facility], Unavailable Unavailable [facility] MATCHESWALA JERED, Unavailable Unavailable MATCHESWALA JERED SUKH, SUKH Unavailable Unavailable [facility] Unavailable Unavailable EMS, [facility] Unavailable Unavailable EMS, [facility] MENA THO, MENA Unavailable Unavailable THO [...] Unavailable Unavailable EQUIP[facility], [facility] Unavailable Unavailable EMERGENCY PHYS, [facility] BRANDON, BRANDON Unavailable [facility]available [facility], Unavailable Unavailable [facility] SWINEY, SWINEY Unavailable Unavailable WALKER FOR, WALKER Unavailable Unavailable FOR MILO ANGEL, MILO Unavailable Unavailable ANGEL DAVID ABDULKADIR, DAVID Unavailable Unavailable ABDULKADIR Purpose Continuity of Care Document - 12-29-2011 through 2016 Problems Code Diagnosis DOS Provider Status [id number] OTHER LONG 07-28-2016 [facility] CUR[facility] DRUG THERAPY E83.42 Hypomagnese 07-25-2016 rojelio [...] encounter W19.XXXA Unspecified 07-25-2016 fall, initial encounter [id number] PAIN IN 07-18-2016 [facility] R600 LOCALIZED 07-18-2016 [facility] EDEMA [facility] I459 CONDUCTION 07-17-2016 [facility] DISORDER [facility] UNSPECIFIED FOUNDATION I517 CARDIOMEGAL 07-17-2016 [facility] Y [facility] R000 TACHYCARDIA 07-17-2016 [place] [facility] UNSPECIFIED [facility] R4182 ALTERED 07-17-2016 [facility] STATUS [facility] UNSPECIFIED R9431 ABNORMAL 07-17-2016 [facility] ELECTROCARD SERV IOGRAM [facility] [id number] POISN UNS 07-17-2016 [facility] RX MEDS BIO SERV SUBSTANCE [facility] SLF-HRM INIT ENC Z4682 ENCOUNTER 07-17-2016 [facility] ADJUST [facility] NON-VASCULA R CATHETER Z950 PRESENCE OF 07-17-2016 [facility] CARDIAC SERV PACEMAKER FOUND[facility] M7989 OTHER 07-16-2016 [facility] SPECIFIED SERV SOFT TISSUE FOUNDATION DISORDERS N179 ACUTE 07-16-2016 [facility] KID[facility] FAILURE [facility] UNSPECIFIED [id number] UNSPECIFIED 07-16-2016 [facility] FALL [facility] INITIAL [facility] ENCOUNTER A63315 PRIMARY 07-15-2016 [facility] OSTEOARTHRI SERV TIS LEFT FOUNDATION SHOULDER [...] R GR VENTILATOR STATUS G8929 OTHER 06-08-2016 [facility] CHRONIC PHYSICIANS PAIN GROUP M519 UNS THOR 06-08-2016 [facility] THORACOLUMB PHYSICIANS AR GROUP LUMBOSACRAL IV DISC D/O M5417 RADICULOPAT 06-08-2016 [facility] HY PHYSICIANS LUMBOSACRAL GROUP REGION X36308 PAIN IN 05-12-2016 [facility] RIGHT ELBOW PHYSICIANS GROUP J069 ACUTE UPPER 05-04-2016 [facility] PHYS INFECTION UNSPECIFIED E86329 OTHER 05-04-2016 [facility] SYNOVITIS N EMERGENCY AND PHYS TENOSYNOVIT IS RIGHT FOREARM R112 NAUSEA WITH 03-27-2016 [facility] UNSPECIFIED MEDICAL GROUP C19190 PAIN IN 02-09-2016 [facility] RIGHT PHYSICIANS SHOULDER GROUP [id number] SPONDYLOSIS 12-15-2015 CHEO ADAMSON, W/O , PSC MYELOPATH/R ADICULOPATH Y LUMB RGN 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 Z5181 ENCOUNTER 12-15-2015 [facility] THERAPEUTIC LA DRUG LEVEL MONITORING R05 COUGH 11-04-2015 [facility]YSIC[facility]ANS GROUP M479 SPONDYLOSIS 10-13-2015 [facility] UNSPECIFIED INC [id number] LACERATION 09-05-2015 [facility] W/O FB RT UPPER ARM INITIAL ENC R58 HEMORRHAGE 08-29-2015 [facility] CLASSIFIED [id number] ABRASION OF 08-29-2015 [facility] EMS FOREARM INITIAL ENC [id number] LACERATION 08-29-2015 CANDIDO MURPHY W/O FOREIGN BODY RT FOREARM INITIAL [id number] INTENTIONAL 08-29-2015 CANDIDO MURPHY SELF-HARM OT SHARP OBJECT INIT ENC M4316 SPONDYLOLIS 07-24-2015 [facility] LUM[facility] REGION M5126 OTH 07-24-2015 [facility] RAL DISC IMAGING ASS DISPLACEMEN T LUMBAR RGN M545 LOW BACK 07-01-2015 [facility] INC U72386 INCMPL ROT 06-19-2015 [place] [facility]/RUPT JOINT LT SHOULDR SURGEO NOT TRAUMAT T44105 PAIN IN 06-10-2015 [facility] SHOULDER ASSOC W96947 OTHER 06-10-2015 [facility] SPECIFIED [facility] TENDON LEFT SHOULDER B22327 UNS ROT 06-10-2015 [facility] CUFF RADIOLOGY TEAR/RUPT ASSOC LT SHLDR NOT SPEC TRAUMAT M7582 OTHER 06-10-2015 [facility] SHOULDER [facility] LEFT SHOULDER R609 EDEMA 06-10-2015 [facility] UNSPECIFIED [facility] [id number] STRAIN MUSC 06-10-2015 [facility] TEND [facility] CUFF LT SHLDR INIT ENC S55351 PAIN IN 05-29-2015 [place] UNSPECIFIED FOOT & LIMB ANKLE CE F68095L CONTUSION 05-29-2015 [place] UNS LESSER FOOT & TOES W/O ANKLE CE DAMAGE NAIL INIT E663 OVERWEIGHT 05-26-2015 [facility] E785 HYPERLIPIDE 05-26-2015 [facility]ANS UNSPECIFIED LA I10 ESSENTIAL 05-26-2015 [facility] PRIMARY PHYSICIANS HYPERTENSIO GROUP N Z720 TOBACCO USE 05-26-2015 [facility] Z7689 PERSONS 05-26-2015 LAB [facility] ENCOUNTER ELIZABETH [employer] HOLDINGS OT CIRCUMSTANC ES M99363 PAIN IN 02-19-2015 [facility] [place] LEFT FOOT RADIOLOGY F1434KH CONTUSION 02-19-2015 [facility] BAB OF LEFT FOOT INITIAL ENCOUNTER [id number] ABRASION 02-19-2015 [place] LEFT FOOT [facility] ENCOUNTER I649CXY CAUGHT 02-19-2015 [facility] BAB CRUSHED JAM/PINCHED BTWN [...] URIS 07-13-2014 [facility] ARRINGTON OF UNSPECIFIED SITE 03188 UNSPECIFIED 07-09-2014 [facility] AR[facility]INGTON MENIERES DISEASE 78000 UNS 07-09-2014 [facility] GASTRITIS&G ASTRODUODIT IS W/O MENTION HEMORR 78472 ESOPHAGEAL 06-24-2014 LAFELY MURPHY REFLUX 87428 INSOMNIA 06-24-2014 LAFELY MURPHY UNSPECIFIED 95201 BURN 06-24-2014 [facility] UNSPECIFIED DEGREE UNSPECIFIED SITE HAND 05145 CALCANEAL 04-08-2014 [facility] 7268 OTHER 04-08-2014 [facility] ENTHESOPATH PSC IES 66594 EXOSTOSIS 04-08-2014 [place] OF FOOT & UNSPECIFIED ANKLE CE SITE 7295 PAIN IN 04-08-2014 [facility] FOOT & TISSUES OF ANKLE CE LIMB V7284 UNSPECIFIED 04-04-2014 [facility] PRE-OPERATI GROUP, VE EXAMINATION 99154 OTHER JOINT 03-26-2014 [facility] NEC SHOULDER REGION 8406 SUPRASPINAT 03-26-2014 [facility] 52481 PAIN IN 03-08-2014 [facility] JOINT, ORTHOPAEDIC SHOULDER S PLC REGION 58879 DISORDER OF 03-01-2014 [facility] BONE AND EAST CARTILAGE UNSPECIFIED 462 ACUTE 02-21-2014 LAFELY MURPHY PHARYNGITIS 3671 MYOPIA 01-01-2014 [facility] 81245 PAIN IN 12-27-2013 [facility] AR[facility]INGTON JOINT, LOWER LEG 7242 LUMBAGO 12-27-2013 [facility] ARRINGTON 5180 PULMONARY 09-29-2013 [facility]LLAPSE [facility] 5275 SIALOLITHIA 09-29-2013 [facility] SIS [facility] 7213 LUMBOSACRAL 09-29-2013 [facility] SPONDYLOSIS FOUNDATION WITHOUT MYELOPATHY 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-2013 [facility] 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 CY [...] 8 19 PH CE AR TA MA OR CY NO PH OF 7. CY 5- NT 32 HI 5 AN A ND 59 02 03 12 6 00 HO Ac ED 74 -0 -0 .0 00 ME ti NI 60 7- 3- 00 06 TO ve SO 17 20 20 08 WN NE 50 17 17 09 9 65 PH 20 AR MA MG CY TA OF BL ET CY NT HI AN A ND 64 02 03 30 14 00 HO [...] 2 69 PH CE AR TA MA OR CY NO PH OF EN CY 5- [...] 02:21 c MDRO Wnd (07-15-2016 04:38) Bacteri [id number] complet a XXX 017 00 not ed [...] DOS Code Location Performer Comment DRUG TEST 16029 [facility] T[facility] PRSMV 7 [facility] QUAL DIR INC INC OPTICAL OBS PER DAY MRI LOWER 02169 [place] EXTREM 7 MEDICAL OTH/THN SERV JT W/O & FOUNDATIO W/CONTR N MATR MRI ANY 00824 [place] JT LOWER 7 MEDICAL EXTREM SERV W/O & FOUNDATIO W/CONTRAS N T MATRL ECG 20462 [place] MANDA ROUTINE 7 MEDICAL ECG SERV W/LEAST FOUNDATIO 12 LDS N [place] [address] [place] NASREEN RETROPERI 7 MEDICAL TONEAL SERV REAL TIME FOUNDATIO W/IMAGE N COMPLETE RADEX 50074 [place] ANKLE 7 MEDICAL COMPLETE SERV MINIMUM 3 FOUNDATIO VIEWS N RADEX 36577 [place] DANY SHOULDER 7 MEDICAL COMPLETE SERV MINIMUM 2 FOUNDATIO VIEWS N GROUND A0425 TABITH[facility] TABITHA MILEAGE 7 FAYETTE FAYETTE PER URBAN URBAN STATUTE COGOVT COGOVT MILE CRITICAL 26014 K[facility] DEGENER CARE 7 NURSE ILL/INJUR PRACTITIO ED NER GR PATIENT INIT 30-74 MIN AMB A0427 TABITHA TABITHA SERVICE 7 FAYETTE FAYETTE ALS URBAN URBAN EMERGENCY [place] [address] [place] ALHAJERI HEAD/BRAI 7 MEDICAL N W/O SERV CONTRAST FOUNDATIO MATERIAL N RADIOLOGI 76205 [place] SUKH C 7 MEDICAL EXAMINATI SERV ON CHEST FOUNDATIO SINGLE N VIEW FRONTAL DRUG TEST 83367 [facility] T[facility] PRSMV 7 MEM HOS[facility] QUAL DIR INC INC OPTICAL OBS PER DAY DRUG 93935 [facility] T[facility] SCREENING 7 [facility] OPIOIDS INC INC & OPIATE ANALOGS 5/MORE DRUG TEST 22564 [facility] T[facility] PRSMV 7 MEM HOS[facility] MEM [facility]OS[facility] QUAL DIR INC INC OPTICAL OBS PER DAY RADEX 93280 [facility] [place] SCALF ELBOW 7 RADIOLOGY COMPLETE MINIMUM 3 VIEWS DRUG TST G0477 COMBINED COMBINED PRESUMP;C 6 PHYSICIAN PHYSICIAN PBL BEING S LA S LA READ DC OPT OBV ONLY THERAPEUT 89183 [facility] LEIDY HOWARD 6 PHYSICIAN ABDULKADIR PROPHYLAC S GROUP TIC/DX INJECTION SUBQ/IM INJECTION J0696 [facility] LEIDY 6 PHYSICIAN ABDULKADIR CEFTRIAXO S GROUP NE SODIUM PER 250 MG INJECTION J1040 [facility] T[facility]Z 6 MEM HOS[facility] MEM [facility]OS[facility] METHYLPRE INC INC DNISOLONE ACETATE 80 MG NJX 53827 CHEO SILVERIO CARLOS ALBERTO DX/THER 6 MD SNOW, AGT PVRT PSC FACET JT LMBR/SAC 3+ LEVEL NJX 14755 CHEO SILVERIO CARLOS ALBERTO DX/THER 6 MD SNOW, AGT PVRT PSC FACET JT LMBR/SAC 1 LEVEL NJX 30093 CHEO SILVERIO CARLOS ALBERTO DX/THER 6 MD SNOW, AGT PVRT PSC FACET JT LMBR/SAC 2ND LEVEL DRUG TST G0477 COMBINED COMBINED PRESUMP;C 6 PHYSICIAN PHYSICIAN PBL BEING S LA S LA READ DC OPT OBV ONLY DRUG TST G0477 [facility] T[facility] PRESUMP;C 6 MEM HOS[facility]OS[facility] PBL BEING INC INC READ DC OPT OBV ONLY GROUND A0425 [facility] STATUTE EMS EMS MILE AMBULANCE A0429 [facility] SERVICE 6 [facility] EMERGENCY EMS EMS TRANSPORT SMPL 65330 REY REY REPAIR 6 JEFFREY JEFFREY SCALP/NEC K/AX/WOODROW T/TRUNK 2.6-7.5CM 3D 28108 [facility] KEE RENDERING 6 MEDICAL BRET W/INTERP IMAGING & ASS POSTPROCE SS SUPERVISI ON MRI 74412 [facility] T[facility] SPINAL 6 MEM [facility] CANAL INC INC LUMBAR W/O CONTRAST MATERIAL DRUG TST G0477 [facility] T[facility]Z PRESUMP;C 6 MEM HOS[facility] MEM [facility]OSP PBL BEING INC INC READ DC OPT OBV ONLY DRUG 99650 [facility] T[facility] SCREENING 6 MEM HOS[facility] MEM [facility]OSP OPIOIDS INC INC & OPIATE ANALOGS 5/MORE APPL 29336 [facility] MODALITY 6 MEM HOS[facility] MEM [facility]OSP 1/> AREAS INC INC TRACTION MECHANICA L THERAPEUT 53072 [facility] T[facility] IC PX 1/> 6 MEM H[facility] AREAS INC INC EACH 15 MIN EXERCISES E-STIM G0283 JOI TAMEZ 1/> AREAS 6 MEM [facility]OS[facility] OTH THAN INC INC WND CARE PART TX PLAN APPLICATI 74129 [facility] TAMEZ ON 6 MEM [facility]OS[facility] MODALITY INC INC 1/> AREAS HOT/COLD PACKS APPLICATI 08118 [facility] TAMEZ ON 6 MEM [facility]OS[facility] MODALITY INC INC 1/> AREAS HOT/COLD PACKS E-STIM G0283 JOI TAMEZ 1/> AREAS 6 MEM HOS[facility] MEM HOSP OTH THAN INC INC WND CARE PART TX PLAN THERAPEUT 74239 JOI TAMEZ IC PX 1/> 6 MEM HOS[facility] MEM HOSP AREAS INC INC EACH 15 MIN EXERCISES APPL 14260 JO[facility] TAMEZ MODALITY 6 MEM HOSP MEM HOSP 1/> AREAS INC INC TRACTION MECHANICA L ARTHROCEN 73872 [facility] PAREKHIS 6 BONE & BONE & ASPIR&/IN JOINT JOINT J MAJOR SURGEO SURGEO JT/BURSA W/O US INJECTION J1040 [facility] FUCHS 6 BONE & KAV METHYLPRE JOINT DNISOLONE SURGEO ACETATE 80 MG APPL 79326 JOI TAMEZ MODALITY 6 MEM HOS[facility]OS[facility] 1/> AREAS INC INC TRACTION MECHANICA L THERAPEUT 30927 JOI TAMEZ IC PX 1/> 6 MEM HOS[facility]OS[facility] AREAS INC INC EACH 15 MIN EXERCISES E-STIM G0283 JOI TAMEZ 1/> AREAS 6 MEM HOSP MEM HOSP OTH THAN INC INC WND CARE PART TX PLAN APPLICATI 46723 JO[facility] TAMEZ ON 6 MEM [facility]OS[facility] MODALITY INC INC 1/> AREAS HOT/COLD PACKS APPLICATI 50227 [facility] TAMEZ ON 6 MEM [facility]OS[facility] MODALITY INC INC 1/> AREAS HOT/COLD PACKS MANUAL 33498 JOI TAMEZ THERAPY 6 MEM HOS[facility] MEM [facility]OS[facility] TQS 1/> INC INC REGIONS EACH 15 MINUTES E-STIM G0283 JOI TAMEZ 1/> AREAS 6 MEM HOS[facility] MEM HOSP OTH THAN INC INC WND CARE PART TX PLAN THERAPEUT 76133 JOI TAMEZ IC PX 1/> 6 MEM H[facility]OSP AREAS INC INC EACH 15 MIN EXERCISES THERAPEUT 50010 JOI TAMEZ IC PX 1/> 6 MEM HOSP MEM [facility]OSP AREAS INC INC EACH 15 MIN EXERCISES E-STIM G0283 JOI TAMEZ 1/> AREAS 6 MEM HOS[facility] MEM HOSP OTH THAN INC INC WND CARE PART TX PLAN APPLICATI 26634 [facility] TAMEZ ON 6 MEM H[facility] MEM [facility]OSP MODALITY INC INC 1/> AREAS HOT/COLD PACKS APPL 76136 JOI TAMEZ MODALITY 6 MEM HOSP MEM HOSP 1/> AREAS INC INC TRACTION MECHANICA L ARTHROCEN 16859 [facility] TESIS 6 [facility] ASPIR&/IN HOSP HOSP J MAJOR JT/BURSA W/O US FLUOROSCO 58643 [facility] BENÍTEZ PIC 6 RADIOLOGY III JAM GUIDANCE ASSOC NEEDLE PLACEMENT [place] ANY 48470 [facility] RICE N. JT UPPER 6 RADIOLOGY EXTREMITY ASSOC W/O & W/CONTR MATRL THERAPEUT 65982 JOI JOI IC PX 1/> 6 MEM HOSP MEM HOSP AREAS INC INC EACH 15 MIN EXERCISES APPLICATI 27957 JOI JOI ON 6 MEM HOSP MEM HOSP MODALITY INC INC 1/> AREAS HOT/COLD PACKS E-STIM G0283 JOI JOI 1/> AREAS 6 MEM HOSP MEM HOSP OTH THAN INC INC WND CARE PART TX PLAN PHYSICAL 13113 JOI JOI THERAPY 6 MEM HOSP MEM HOS[facility] EVALUATIO INC INC N RADEX 30307 [place] SKURKA FOOT 6 FOOT & VINOD COMPLETE ANKLE CE MINIMUM 3 [place] [address] COMBINED COMBINED FREE 6 PHYSICIAN PHYSICIAN THYROXINE S LA S LA DRUG TST G0477 JOI TAMEZ PRESUMP;C 6 MEM HOS[facility] MEM [facility]OS[facility] PBL BEING INC INC READ DC OPT OBV ONLY LIPID 49108 COMBINED COMBINED PANEL 6 PHYSICIAN PHYSICIAN S LA S LA DRUG 53921 LAB NAOMY LAB NAOMY SCREEN 6 ELIZABETH ELIZABETH QUANTITAT HOLDINGS HOLDINGS JENNA LITHIUM RADEX 78944 [place] SA[facility] SHOULDER 6 BONE & KAV COMPLETE JOINT MINIMUM 2 SURGEO VIEWS AMBULANCE A0429 [facility] SERVICE 5 [facility] EMERGENCY EMS EMS TRANSPORT GROUND A0425 [facility] MILEAGE 5 [facility] STATUTE EMS EMS MILE RADEX 59913 [facility] [place] JAQUELIN FOOT 5 RADIOLOGY RHO COMPLETE MINIMUM 3 [place] [address] COMBINED COMBINED FREE 5 PHYSICIAN PHYSIC[place] [address] COMBINED COMBINED TRIIODOTH 5 PHYSICIAN PHYSICIAN YRONINE S LA S LA T3 [place] [address] [place] [address] COMBINED COMBINED TESTOSTER 5 PHYSICIAN PHYSICIAN ONE TOTAL S LA S LA LIPID 12623 COMBINED COMBINED PANEL 5 PHYSICIAN PHYSICIAN S LA S LA PROSTATE G0103 COMBINED COMBINED CANCER 5 PHYSICIAN PHYSICIAN SCREENING S LA S LA ; PSA TEST RESECTION 30462 [facility] CONDYLE 4 FOOT & VINOD DISTAL ANKLE CE END PHALANX EACH TOE ANES OPEN 47956 ANESTHESI IYER GRAHAM PROC 4 A BONES ASSOCIATE LOWER S PSC LEG/ANKLE /FOOT NOS CRTCHS E0114 [facility] UNDARM 4 HOME HOME OTH THAN MEDICAL MEDICAL WOOD PAIR EQUIPME EQUIPME PAD TIP&HNDGR IP BLOOD 79884 [facility] HICKS COUNT 4 LAB LAB COMPLETE PARTNERS PARTNERS AUTO&AUTO GROUP, GROUP, DIFRNTL WBC COMPREHEN 85719 K[facility]T HICKS SIVE 4 LAB LAB METABOLIC PARTNERS PARTNERS PANEL GROUP, GROUP, COLLECTIO 79277 DELL AMJA SOB N VENOUS 4 DIABETIC BLOOD CENTER VENIPUNCT URE ARTHROSCO 61134 [facility] PY 4 SURGERY SURGERY SHOULDER CENTER CENTER SURG DEBRIDEME NT LIMITED ARTHROSCO 38545 [facility] PY 4 [place] ANGEL SHOULDER ORTHOPAED SURGICAL ICS PLC CAPSULORR HAPHY SHOULDER L3670 [facility] CENTRAL ORTHOSIS 4 [facility] ACROMIO/C ORTHOPAED ORTHOPAED LAVICULAR IC IC PREFAB RADEX 39702 [facility] ANKLE 4 FOOT & VINOD COMPLETE ANKLE CE MINIMUM 3 VIEWS RADIOLOGI 23711 [facility] C 4 FOOT & VINOD EXAMINATI ANKLE CE ON FOOT 2 VIEWS INJ A9577 [facility] GADOBENAT 4 EAST EAST E DIMEGLUMI NE MULTIHANC E [place] ANY [address] [facility] JT UPPER 4 EAST EAST EXTREMITY W/O & W/CONTR MATRL RADEX TOE 65071 [facility] [place]O MINIMUM 4 [place] ANGEL 2 VIEWS ORTHOPAED ICS PLC RADEX 33440 [facility] SHOULDER 4 [place] ANGEL COMPLETE ORTHOPAED MINIMUM 2 ICS PLC VIEWS OPHTH 53459 [facility] 4 GRE GRE XM&EVAL COMPRE NEW PT 1/> [place] [address] [place] MAXILLOFA 4 MEDICAL EDW CIAL W/[place] [address] [place] ANGIOGRAP 4 MEDICAL EDW HY HEAD SERV W/CONTRAS FOUNDATIO T/NONCONT N RAST [facility] LUMBAR [address]18[address] [place] SPINE 4 MEDICAL EDW W/O SERV CONTRAST FOUNDATIO MATERIAL N RADIOLOGI 11808 [place] DISANTIS C 4 MEDICAL CARLOS ALBERTO EXAMINATI SERV ON PELVIS FOUNDATIO 1/[address] [place] [address] [place] HEAD/BRAI 4 MEDICAL EDW N W/O SERV CONTRAST FOUNDATIO MATERIAL N SIMPLE 52184 [place] REPAIR 4 MEDICAL SET F/E/E/N/L SERV /M FOUNDATIO 2.6CM-5.0 N CM SMPL 29730 [place] REPAIR 4 MEDICAL SET SCALP/NEC SERV K/AX/WOODROW FOUNDATIO T/[place] 2.[place] [address] [place] DAVID ABDOMEN & 4 MEDICAL ABDULKADIR PELVIS SERV W/[place] [address] [place] ANGIOGRAP 4 MEDICAL EDW HY NECK SERV W/CONTRAS FOUNDATIO T/[place] [address] [place] ANGIOGRAP 4 MEDICAL ABDULKADIR HY CHEST SERV W/CONTRAS [place] [address] [place] CERVICAL 4 MEDICAL EDW SPINE W/O SERV CONTRAST FOUNDATIO MATERIAL N RADIOLOGI 88808 [place] DISANTIS C 4 MEDICAL CARLOS ALBERTO EXAMINATI SERV ON CHEST [place] [address] [place] THORACIC 4 MEDICAL EDW SPINE [...] 7 MEM HOSP OUTPATIEN INC T OFFICE 38526 [facility] LEIDY OUTPATIEN 7 7 PHYSICIAN T VISIT S GROUP 25 MINUTES HOSPITAL JOI - 7 7 [facility] T OFFICE 13091 [facility] OUTPATIEN 7 7 PHYSICIAN T VISIT S GROUP 25 MINUTES HOSPITAL JOI - 7 7 [facility] OUTPATIEN INC T EMERGENCY 54134 [facility] 7 7 JEWEL DEPARTMEN EMERGENCY T VISIT PHYS HIGH/URGE NT SEVERITY OFFICE 67110 [facility] OUTPATIEN 6 6 HEALTH LA JERED T VISIT MEDICAL 15 GROUP MINUTES OFFICE 09958 [facility] OUTPATIEN 6 6 PHYSICIAN ABDULKADIR T VISIT S GROUP 15 MINUTES OFFICE 99410 [facility] OUTPATIEN 6 6 [facility] T VISIT INC 10 MINUTES OFFICE 54916 [facility] SILVERIO CARLOS ALBERTO OUTPATIEN 6 6 MD SNOW, T VISIT PSC 15 MINUTES HOSPITAL [facility] - 6 6 [facility]PATI[facility] INC T OFFICE 90892 [facility] OUTPATIEN 6 6 PHYSICIAN T VISIT S GROUP 15 MINUTES HOSPITAL JOI - 6 6 [facility] OUTPATIEN INC T [facility]OSPITAL JOI - 6 6 [facility] OUTPATIEN INC T OFFICE 54339 CHEOMA[facility]ISIO JEAN OUTPATIEN 6 6 MD SNOW, T NEW 45 PSC MINUTES OFFICE 09215 [facility] OUTPATIEN 6 6 [facility] T VISIT INC 10 MINUTES [facility]OSPITAL JOI - 6 6 [facility]PATIEN INC T OFFICE 28822 [facility] OUTPATI[facility] 6 6 PHYSICIAN ABDULKADIR T VISIT S GROUP 10 MINUTES OFFICE 02177 [facility]ART[facility] BROUSSARD OUTPATIEN 6 6 MURPHY MURPHY T VISIT 25 MINUTES EMERGENCY 05427 CANDIDO REY 6 6 [facility] DEPARTMEN T VISIT MODERATE SEVERITY OFFICE 56232 [facility] OUTPATIEN 6 6 PHYSICIAN ABDULKADIR T VISIT S GROUP 10 MINUTES HOSPITAL JOI - 6 6 [facility] OUTPATIEN [facility] T OFFICE 48696 [facility] OUTPATIEN 6 6 PHYSICIAN ABDULKADIR T VISIT S GROUP 10 MINUTES HOSPITAL JOI - 6 6 [facility] OUTPATIEN [facility] JOI - 6 6 [facility] OUTPATIEN [facility] T OFFICE 28141 [facility] OUTPATI[facility] 6 6 PHYSICIAN ABDULKADIR T VISIT S GROUP 10 MINUTES OFFICE 86096 [facility] 6 6 BONE & KAV T VISIT JOINT 15 SURGEO MINUTES HOSPITAL CENTRAL - 6 6 RASTAFARIAN OUTPATIEN [facility] JOI - 6 6 [facility] OUTPATIEN [facility] T OFFICE 12625 [facility] OUTPATIEN 6 6 FOOT & VINOD T VISIT ANKLE CE 15 MINUT[facility] HOSPITAL JOI - 6 6 [facility] T OFFICE 98506 [facility] OUTPATI[facility] 6 6 PHYSICIAN ABDULKADIR T NEW 30 S GROUP MINUTES OFFICE 86759 [facility] OUTPATI[facility] 6 6 BONE & KAV T NEW 30 JOINT MINUTES SURGEO EMERGENCY 07499 [facility] 5 5 [facility] VISIT LOW/MODER SEVERITY EMERGENCY 47291 SHEREE GALEANO 5 5 [facility] [facility] T EMERGENCY 04446 [facility] 5 5 DEPARTMEN T VISIT MODERATE SEVERITY OFFICE 93747 [facility] OUTPATIEN 5 5 MURPHY MURPHY T VISIT 15 MINUTES OFFICE 34451 [facility] OUTPATIEN 5 5 MURPHY MURPHY T VISIT 15 MINUTES OFFICE 98512 [facility] OUTPATIEN 5 5 MURPHY MURPHY T VISIT 15 MINUTES OFFICE 60948 [facility] OUT[facility]IEN 4 4 DIABETIC T NEW 30 CENTER MINUTES OFFICE 16370 [facility] [place] T VISIT ORTHOPAED 25 [facility] MINUTES OFFICE 06004 [facility] 4 4 FOOT & VINOD T NEW 30 ANKLE CE [facility] - 4 4 EAST OUTPATIEN T OFFICE 90216 [facility] [place] VIS[facility] ORTHOPAED 15 [facility] MINUTES OFFICE 46281 [facility]OUSS[facility] OUTPATIEN 4 4 MURPHY MURPHY T VISIT 15 MINUTES OFFICE 81335 [facility] 4 4 [place] ANGEL ION ORTHOPAED NEW/ESTAB ICS PLC PATIENT 40 MIN OFFICE 78976 [facility] BROUSSARD OUTPATIEN 4 4 MURPHY MURPHY T NEW 30 MINUTES OFFICE 23876 [place] [facility] 4 4 MEDICAL THO ION SERV NEW/ESTAB FOUNDATIO PATIENT N 40 MIN EMERGENCY 32823 [facility] LEHMAN 4 4 MEDICAL SET DEPARTMEN SERV T VISIT FOUNDATIO HIGH/URGE N NT SEVERITY
--- OUTSIDE RECORDS SUMMARY | 2016-10-03 17:37 | External Medical Summary Rpt ---
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 OFF[facility] 92010 [facility] OUTPATI[facility] 6 6 PHYSICIAN ABDULKADIR T VISIT S GROUP 10 MINUTES HOSPITAL JOI - 6 6 [facility] INC T OFFICE 15261 [facility] OUTPATIEN 6 6 PHYSICIAN ABDULKADIR T VISIT S GROUP 10 MINUTES HOSPITAL JOI - 6 6 [facility] OUTPATI[facility] INC T HOSPITAL JOI - 6 6 [facility]PATIEN INC T OFFICE 78980 [facility] OUTPATIEN 6 6 PHYSICIAN ABDULKADIR T VISIT S GROUP 10 MINUTES [facility]ICE [facility]1650 [facility] 6 6 BONE & KAV T VISIT JOINT 15 SURGEO MINUTES HOSPITAL [facility] - 6 6 [facility] JOI - 6 6 [facility] OUTPATIEN INC T OFFICE 84735 [facility] OUTPATIEN 6 6 FOOT & VINOD T VISIT ANKLE CE 15 MINUTES OFFICE 58642 [facility] OUTPATI[facility] 6 6 PHYSICIAN ABDULKADIR T NEW 30 S GROUP MINUTES HOSPITAL JOI - 6 6 [facility] T OFFICE 59170 [place] [facility] OUTPAT[facility]EN 6 6 BONE & KAV T NEW 30 JOINT MINUTES [facility] JOI - 5 5 [facility] OUTPATIEN INC T EMERGENCY 06630 JOI 5 5 [facility] DEPARTMEN INC T VISIT LOW/MODER SEVERITY EMERGENCY 73393 SHEREE GALEANO 5 5 [facility] T VISIT MODERATE SEVERITY EMERGENCY 51180 SOKAN BAB SOKAN BAB 5 5 DEPARTMEN T VISIT MODERATE SEVERITY OFFICE 12952 AARTI MUKHERJEEPATIEN 5 5 MURPHY MURPHY T VISIT 15 MINUTES OFFICE 09158 AARTI MUKHERJEEPATIEN 5 5 MURPHY MURPHY T VISIT 15 MINUTES OFFICE 78080 ARNOLD ARNOLD OUTPATIEN 5 5 MURPHY MURPHY T VISIT 15 MINUTES OFFICE 34530 [facility] J[facility] SOB OUTPATIEN 4 4 DIABETIC T NEW 30 CENTER MINUTES OFFICE 04631 [facility] 4 4 [place] ANGEL T VISIT ORTHOPAED 25 [facility] MINUTES OFFICE 04694 [facility] ANG[facility] OUTPATIEN 4 4 FOOT & VINOD T NEW 30 ANKLE CE [facility] 4 4 EAST OUTPATIEN T OFFICE 13689 [facility] OUTPATI[facility] 4 4 [place] ANGEL T VISIT ORTHOPAED 15 [facility] MINUTES OFFICE 61268 AARTI BROUSSARD OUTPATIEN 4 4 MURPHY MURPHY T VISIT 15 MINUTES OFFICE 44105 KRYSTEN PEDRAZA CONSULTAT 4 4 [place] ANGEL ION ORTHOPAED NEW/ESTAB [facility] PLC PATIENT 40 MIN OFFICE 84881 AARTI BROUSSARD OUTPATIEN 4 4 MURPHY MURPHY T NEW 30 MINUTES EMERGENCY 22487 USHA LEHMAN 4 4 MEDICAL SET DEPARTMEN SERV T VISIT FOUNDATIO HIGH/URGE N NT SEVERITY OFFICE 77235 USHA MENA CONSULTAT 4 4 MEDICAL THO ION SERV NEW/ESTAB FOUNDATIO PATIENT N 40 MIN
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
--- NOTE | 2016-10-03 17:38 | Emergency Room Report ---
History of Present Illness Time Seen by [id number] Presenting Problem in Triage Pt arrived:Wheelchair Presenting Problem:Pt states he has feet, rib, and left knee pain. Pt states he had previous messed up his leg, rib and feet before and believes he did it again. 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 N Clinical Suspician of Infection? N Mental Status: 1 - Regular (Normal Baseline) Sepsis Risk:Possible Sepsis Risk Have you (or family members/close friends) recently traveled outside the [place]? N If Yes, where/when: Have you had exposure to infectious disease within the past month? N TB? Other? Specify: Source patient, RN notes reviewed, family, old records Exam Limitations no limitations Comment pt with multiple c/o which include skin abrasion rt groin and knee and rib pain Cardiac Chest Pain Chest pain indicative of cardiac No Timing/Duration this evening Severity moderate ALLERGIES Coded Allergies: codeine (Intermediate, I-RASH 10/28/15) latex (I-RASH 10/28/15) Home Medications Active Scripts HYDROCODONE 5MG/APAP 325MG (Hydrocodon-Acetaminophen 5-325) 1 TAB PO BID PRN pain #60 TAB Prov: 12/15/15 Diclofenac Sodium 75 MG PO BID PRN pain #60 ECT Ref 2 Prov: 10/13/15 Reported Medications Gabapentin (Gabapentin 800MG) 800 MG PO QID #90 Amlodipine Besylate (Norvasc) 10 MG PO DAILY Omeprazole (Omeprazole 40MG) 40 MG PO DAILY TIZANIDINE HCL (Zanaflex) 4 MG PO Q8 [place] Carbonate ([place] Carb 300MG Capsule) 300 MG PO BID Ibuprofen (Ibu) 800 MG PO TIDP PRN PAIN HYDROCODONE/ACETAMINOPHEN ([place] 10-325 Tablet) 1 TAB PO BID MISCELLANEOUS (UNKNOWN MEDICATION) 200 MG PO TIDP PRN ANGER MANAGEMENT History Medical History General CAD? No Angina: No NC: No Hypertension? Yes Hyperlipidemia? No CHF? No DVT? No PE? No COPD? No Asthma? No Anemia? No GERD? No Gastric ulcers? No GI Bleed? No Hernia? No Thyroid Problems? No Hypothyroidism? No CVA? No Seizures? No Diabetes? No Insulin Dependent: No Insulin Pump: No Home FSBS? No Renal Insuffiency? No End Stage Renal Disease? No UTI? No Stones? No BPH? No GB Disease: No Nephritic Syndrome? No Asplenia? No Hepatitis? No Sickle Cell Disease? No Arthritis? Yes Migraines? No Cataracts? No Glaucoma? No MRSA? No HIV? No TB? No Anxiety? No Depression? No Cancer? No More? Yes Additional hx: OSTEOARTHRITIS Immunization Hx DT/Tetanus > 10 Years Ago Surgical Hx Previous Surgery?Y R SHOULDLER L SHOULDER L FOOT Tonsils And/Or Adenoids Social History Smoking Hx Smoker: Light Tobacco Smoker Tobacco: Yes Type Cigarettes Packs/day < 1 Pack Are you/the child exposed to second-hand smoke: Yes Alcohol Alcohol: Yes Drugs none Review of Systems All Other Systems Reviewed and Negative Constitutional denies fever Eyes denies drainage ENT denies: ear pain, epistaxis, throat pain. Respiratory denies cough, denies shortness of breath, denies wheezing Cardiovascular denies chest pain, denies syncope Gastrointestinal denies abdominal pain, denies diarrhea, denies vomiting Genitourinary denies: dysuria, frequency, hesitancy, hematuria. Musculoskeletal see HPI, denies back pain, joint pain, denies joint swelling, denies neck pain, other Skin see HPI, other Psychiatric/Neurological denies headache, denies seizure Physical Exam Vital Signs Vital Signs Date Time Temp Pulse Resp B/P Pulse O2 O2 Flow FiO2 Ox Delivery Rate 10/03 1715 97.8 122 20 139/100 98 - WBC >12,000 or <4,000 or 10% bands? 2 or more SIRS Criteria Met? B/P:139/100 MAP:113 Creatinine >2.0? UA output<0.5ml/kg/hr for 2 hrs? Platelet count >100,000? Lactate >2.0mmol/1? INR >1.2 or PTT > than 60 sec? Evidence of Organ Dysfunction? Provider documented clinical suspician of infection? N Sepsis Criteria Count: 2 Sepsis Risk: Possible Sepsis Risk General Appearance no apparent distress Eye Exam - bilateral eye PERRL, bilateral eye EOMI Ear, Nose, Throat normal ENT inspection Neck supple Respiratory Status No: respiratory distress. Lung Sounds bilateral: lungs clear. 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 No Results/Orders Laboratory Tests 10/03/16 1735: Urine Color YELLOW, Urine Appearance SL CLOUDY, Urine pH 5.5, Ur Specific [place] >= 1.030, Urine Protein NEGATIVE, Urine Ketones NEGATIVE, Urine Blood NEGATIVE, Urine Nitrate NEGATIVE, Urine Bilirubin NEGATIVE, Urine Urobilinogen 0.2, Ur Leukocyte Esterase NEGATIVE, Urine WBC 5-10, Ur Squamous Epith Cells 5- 10, Urine Bacteria 4+, Urine Mucus OCC, Urine Glucose NEGATIVE Current Medication Orders Sig/Cj Start time Last Medication Dose Route Stop Time Status Admin Multi-Ingredient 15 GM ONCE ONE 10/03 1815 AC Ointment TP 10/03 1816 Dexamethasone Sodium 8 MG ONCE ONE 10/03 1800 DC Phosphate IM 10/03 1801 Hydrocodone Bitart/ 1 TAB ONCE ONE 10/03 1800 DCr Acetaminophen PO 10/03 1801 Ketorolac 60 MG ONCE ONE 10/03 1800 DC Tromethamine IM 10/03 1801 Multi-Ingredient 0 .STK-MED ONE 10/03 1754 DC Ointment TP Orders Procedure Date/time Status CULTURE, URINE 10/03 1735 Active URINALYSIS/COMPLETE 10/03 1724 Complete Departure Departure Time of Disposition 1756 Disposition DC Home or Self Care(routine) Clinical Impression Primary Impression: Leg pain, left Secondary Impressions: Abrasions of multiple sites Condition STABLE Referrals Jamaal Chance MD (Family) Patient Instructions DI for Joint Pain Additional Instructions see pcp for follow up Discharge Counseling Counseled pt/family regarding diagnosis, test results, medications/RX, follow up needs Prescriptions Current Visit Scripts MUPIROCIN 2% (Bactroban Oint) 1 ARTURO TP BID #1 TUBE CEPHALEXIN (Keflex 500MG Capsule) 500 MG PO Q8H #30 CAP ED Critical Care Critical Care No at 1802
--- NOTE | 2016-10-03 17:38 | Emergency Room Report ---
History of Present Illness Time Seen by [id number] Presenting Problem in Triage Pt arrived:Wheelchair Presenting Problem:Pt states he has feet, rib, and left knee pain. Pt states he had previous messed up his leg, rib and feet before and believes he did it again. 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 N Clinical Suspician of Infection? N Mental Status: 1 - Regular (Normal Baseline) Sepsis Risk:Possible Sepsis Risk Have you (or family members/close friends) recently traveled outside the [place]? N If Yes, where/when: Have you had exposure to infectious disease within the past month? N TB? Other? Specify: Source patient, RN notes reviewed, family, old records Exam Limitations no limitations Comment pt with multiple c/o which include skin abrasion rt groin and knee and rib pain Cardiac Chest Pain Chest pain indicative of cardiac No Timing/Duration this evening Severity moderate ALLERGIES Coded Allergies: codeine (Intermediate, I-RASH 10/28/15) latex (I-RASH 10/28/15) Home Medications Active Scripts HYDROCODONE 5MG/APAP 325MG (Hydrocodon-Acetaminophen 5-325) 1 TAB PO BID PRN pain #60 TAB Prov: 12/15/15 Diclofenac Sodium 75 MG PO BID PRN pain #60 ECT Ref 2 Prov: 10/13/15 Reported Medications Gabapentin (Gabapentin 800MG) 800 MG PO QID #90 Amlodipine Besylate (Norvasc) 10 MG PO DAILY Omeprazole (Omeprazole 40MG) 40 MG PO DAILY TIZANIDINE HCL (Zanaflex) 4 MG PO Q8 [place] Carbonate ([place] Carb 300MG Capsule) 300 MG PO BID Ibuprofen (Ibu) 800 MG PO TIDP PRN PAIN HYDROCODONE/ACETAMINOPHEN ([place] 10-325 Tablet) 1 TAB PO BID MISCELLANEOUS (UNKNOWN MEDICATION) 200 MG PO TIDP PRN ANGER MANAGEMENT History Medical History General CAD? No Angina: No NH: No Hypertension? Yes Hyperlipidemia? No CHF? No DVT? No PE? No COPD? No Asthma? No Anemia? No GERD? No Gastric ulcers? No GI Bleed? No Hernia? No Thyroid Problems? No Hypothyroidism? No CVA? No Seizures? No Diabetes? No Insulin Dependent: No Insulin Pump: No Home FSBS? No Renal Insuffiency? No End Stage Renal Disease? No UTI? No Stones? No BPH? No GB Disease: No Nephritic Syndrome? No Asplenia? No Hepatitis? No Sickle Cell Disease? No Arthritis? Yes Migraines? No Cataracts? No Glaucoma? No MRSA? No HIV? No TB? No Anxiety? No Depression? No Cancer? No More? Yes Additional hx: OSTEOARTHRITIS Immunization Hx DT/Tetanus > 10 Years Ago Surgical Hx Previous Surgery?Y R SHOULDLER L SHOULDER L FOOT Tonsils And/Or Adenoids Social History Smoking Hx Smoker: Light Tobacco Smoker Tobacco: Yes Type Cigarettes Packs/day < 1 Pack Are you/the child exposed to second-hand smoke: Yes Alcohol Alcohol: Yes Drugs none Review of Systems All Other Systems Reviewed and Negative Constitutional denies fever Eyes denies drainage ENT denies: ear pain, epistaxis, throat pain. Respiratory denies cough, denies shortness of breath, denies wheezing Cardiovascular denies chest pain, denies syncope Gastrointestinal denies abdominal pain, denies diarrhea, denies vomiting Genitourinary denies: dysuria, frequency, hesitancy, hematuria. Musculoskeletal see HPI, denies back pain, joint pain, denies joint swelling, denies neck pain, other Skin see HPI, other Psychiatric/Neurological denies headache, denies seizure Physical Exam Vital Signs Vital Signs Date Time Temp Pulse Resp B/P Pulse O2 O2 Flow FiO2 Ox Delivery Rate 10/03 1715 97.8 122 20 139/100 98 - WBC >12,000 or <4,000 or 10% bands? 2 or more SIRS Criteria Met? B/P:139/100 MAP:113 Creatinine >2.0? UA output<0.5ml/kg/hr for 2 hrs? Platelet count >100,000? Lactate >2.0mmol/1? INR >1.2 or PTT > than 60 sec? Evidence of Organ Dysfunction? Provider documented clinical suspician of infection? N Sepsis Criteria Count: 2 Sepsis Risk: Possible Sepsis Risk General Appearance no apparent distress Eye Exam - bilateral eye PERRL, bilateral eye EOMI Ear, Nose, Throat normal ENT inspection Neck supple Respiratory Status No: respiratory distress. Lung Sounds bilateral: lungs clear. 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 No Results/Orders Laboratory Tests 10/03/16 1735: Urine Color YELLOW, Urine Appearance SL CLOUDY, Urine pH 5.5, Ur Specific [place] >= 1.030, Urine Protein NEGATIVE, Urine Ketones NEGATIVE, Urine Blood NEGATIVE, Urine Nitrate NEGATIVE, Urine Bilirubin NEGATIVE, Urine Urobilinogen 0.2, Ur Leukocyte Esterase NEGATIVE, Urine WBC 5-10, Ur Squamous Epith Cells 5- 10, Urine Bacteria 4+, Urine Mucus OCC, Urine Glucose NEGATIVE Current Medication Orders Sig/Cj Start time Last Medication Dose Route Stop Time Status Admin Multi-Ingredient 15 GM ONCE ONE 10/03 1815 AC Ointment TP 10/03 1816 Dexamethasone Sodium 8 MG ONCE ONE 10/03 1800 DC Phosphate IM 10/03 1801 Hydrocodone Bitart/ 1 TAB ONCE ONE 10/03 1800 DCr Acetaminophen PO 10/03 1801 Ketorolac 60 MG ONCE ONE 10/03 1800 DC Tromethamine IM 10/03 1801 Multi-Ingredient 0 .STK-MED ONE 10/03 1754 DC Ointment TP Orders Procedure Date/time Status CULTURE, URINE 10/03 1735 Active URINALYSIS/COMPLETE 10/03 1724 Complete Departure Departure Time of Disposition 1756 Disposition DC Home or Self Care(routine) Clinical Impression Primary Impression: Leg pain, left Secondary Impressions: Abrasions of multiple sites Condition STABLE Referrals Jamaal Chance MD (Family) Patient Instructions DI for Joint Pain Additional Instructions see pcp for follow up Discharge Counseling Counseled pt/family regarding diagnosis, test results, medications/RX, follow up needs Prescriptions Current Visit Scripts MUPIROCIN 2% (Bactroban Oint) 1 ARTURO TP BID #1 TUBE CEPHALEXIN (Keflex 500MG Capsule) 500 MG PO Q8H #30 CAP ED Critical Care Critical Care No at 1802
--- OUTSIDE RECORDS SUMMARY | 2016-10-03 17:38 | External Medical Summary Rpt ---
Author Author [facility] Brown, ALLINELL [employer] Organization [facility] [employer] Address Unknown Phone Unavailable Results Drugs identified in Urine by Screen method Observa Value Referen Units Interpr Notes Date tion ce etation Range Positive urine drug screen samples are stored for 7 days. Contact the Lab if confirmation of positives is needed. Ampheta NEGATIV <1000 ng/mL No No September 20 mine E informa informa 2016 [Presen tion in tion in 4:00 PM ce] in source source Urine data data by Screen method Barbitura <200 ng/mL No No September 20 roberto informati informati 2016 4:00 [Mass/vol on in on in PM ume] in source source Urine by data data Screen method Benzodiaz 200 ng/mL ng/mL No No September 20 epines informati informati 2016 4:00 [Mass/vol on in on in PM ume] in source source Serum or data data Plasma by Screen method Cocaine <300 ng/g No No September 20 [Mass/vol informati informati 2016 4:00 ume] in on in on in PM Unspecifi source source ed data data specimen Methadone <300 ng/mL No No September 20 informati informati 2016 4:00 [Mass/vol on in on in PM ume] in source source Unspecifi data data ed specimen Opiates <300 ng/mL No No September 20 [Mass/vol informati informati 2016 4:00 ume] in on in on in PM Unspecifi source source ed data data specimen Phencycli <25 ng/mL No No September 20 dine informati informati 2016 4:00 [Mass/vol on in on in PM ume] in source source Unspecifi data data ed specimen 11-Hydr NEGATIV <50 ng/mL No No September 20 oxy E informa informa 2017 delta-9 tion in tion in 4:00 PM source source tetrahy data data drocann abinol [Presen ce] in Unspeci fied specime n Comprehensive metabolic 1998 panel in Serum or Plasma Observa Value Referen Units Interpr Notes Date tion ce etation Range Sodium 135 136 - mmol/L Low No Dec 28 [Moles/ 145 informa 2011 volume] tion in 3:43 PM in source Serum data or Plasma Potassi 4.0 3.50 - mmol/L No Dec 28 um 5.10 informa informa 2011 [Moles/ tion in tion in 3:43 PM volume] source source in data data Serum or Plasma Chlorid 100 98 - mmol/L No Dec 28 e 107 informa informa 2011 [Moles/ tion in tion in 3:43 PM volume] source source in data data Serum or Plasma TOTAL 28 21 - 32 mmol/L No Dec 28 CO2 informa informa 2011 tion in tion in 3:43 PM source source data data ANION 11 5 - 15 mmol/L No Dec 28 GAP informa informa 2011 tion in tion in 3:43 PM source source data data Glucose 99 70 - mg/dl No Dec 28 120 informa informa 2011 [Mass/v tion in tion in 3:43 PM olume] source source in data data Serum or Plasma Urea 11 7 - 18 mg/dl No Dec 28 nitroge informa informa 2011 n tion in tion in 3:43 PM [Mass/v source source olume] data data in Serum or Plasma Creatin 1.2 0.60 - mg/dl No Dec 28 ine 1.30 informa informa 2011 [Mass/v tion in tion in 3:43 PM olume] source source in data data Serum or Plasma AGE 36 No yrs No Dec 28 informa informa informa 2011 tion in tion in tion in 3:43 PM source source source data data data GFR 60 No ml/min No Dec 28 informa informa informa 2011 tion in tion in tion in 3:43 PM source source source data data data Calcium 8.5 8.50 - mg/dl No Dec 28 10.10 informa informa 2011 [Mass/v tion in tion in 3:43 PM olume] source source in data data Serum or Plasma Bilirub 0.6 0.20 - mg/dl No Dec 28 in.tota 1.0 informa informa 2011 l tion in tion in 3:43 PM [Mass/v source source olume] data data in Serum or Plasma Asparta 19 15 - 37 IU/L No No Dec 28 te informa informa 2011 aminotr tion in tion in 3:43 PM ansfera source source se data data [Enzyma tic activit y/volum e] in Serum or Plasma Alanine 35 30 - 65 IU/L No No Dec 28 informa informa 2011 aminotr tion in tion in 3:43 PM ansfera source source se data data [Enzyma tic activit y/volum e] in Serum or Plasma Alkalin 111 50 - IU/L No No Dec 28 e 136 informa informa 2011 phospha tion in tion in 3:43 PM tase source source [Enzyma data data tic activit y/volum e] in Serum or Plasma Protein 7.6 6.40 - g/dl No No Dec 28 8.20 informa informa 2011 [Mass/v tion in tion in 3:43 PM olume] source source in data data Serum or Plasma Albumin 4.0 3.40 - g/dl No No Dec 28 5.0 informa informa 2011 [Mass/v tion in tion in 3:43 PM olume] source source in data data Serum or Plasma GLOBULI 3.6 1.30 - g/dl High No Dec 28 N 3.50 inform2011 tion in 3:43 PM source data A/G 1.1 1.0 - ratio No Dec 28 RATIO 3.90 informa informa 2011 tion in tion in 3:43 PM source source data data BLDo No No No No Dec 28 GLOMERU informa informa informa informa 2011 LAR tion in tion in tion in tion in 3:43 PM FILTRAT source source source source ION data data data data RATE INTERPR ETATION BLDx Normal No No No No Dec 28 Range: informa informa informa informa 2012 60 tion in tion in tion in tion in 3:43 PM Ml/min/ source source source source 1.73 sq data data data data meters If No No No No Dec 28 patient informa informa informa informa 2011 is tion in tion in tion in tion in 3:43 PM source source source source data data data data Pat n, multipl y GFR by 1.120. *GFR No No No No Dec 28 only informa informa informa informa 2011 applies tion in tion in tion in tion in 3:43 PM to source source source source adults data data data data over the age 18. CBC W DIFF AUTOMATED Observa Value Referen Units Interpr Notes Date tion ce etation Range Leukocy 8.5 4.60 - K/uL No No Dec 28 roberto 10.20 informa informa 2011 [#/volu tion in tion in 3:29 PM me] in source source Blood data data by Automat ed count Erythro 5.05 4.04 - M/uL No No Dec 28 cytes 6.13 informa informa 2011 [#/volu tion in tion in 3:29 PM me] in source source Blood data data by Automat ed count Hemoglo 15.4 12.20 - g/dL No Dec 28 bin 18.10 informa informa 2011 [Mass/v tion in tion in 3:29 PM olume] source source in data data Blood Hematoc 44 37.70 - % No No Dec 28 rit 53.70 informa informa 2011 [Volume tion in tion in 3:29 PM source source Fractio data data n] of Blood by Automat ed count Erythro 86.9 80.0 - fL No No Dec 28 cyte 97.0 informa informa 2011 mean tion in tion in 3:29 PM corpusc source source ular data data volume [Entiti c volume] by Automat ed count Erythro 30.5 27.0 - pg No No Dec 28 cyte 31.20 informa informa 2011 mean tion in tion in 3:29 PM corpusc source source ular data data hemoglo bin [Entiti c mass] by Automat ed count Erythro 35.1 31.80 - g/dL No No Dec 28 cyte 35.40 informa informa 2012 mean tion in tion in 3:29 PM corpusc source source ular data data hemoglo bin concent ration [Mass/v olume] by Automat ed count Erythro 13.9 11.60 - % No No Dec 28 cyte 14.80 informa informa 2011 distrib tion in tion in 3:29 PM ution source source width data data [Ratio] by Automat ed count Platele 186 142 - K/uL No No Dec 28 ts 424 informa informa 2012 [#/volu tion in tion in 3:29 PM me] in source source Blood data data by Automat ed count Lymphoc 24.6 10.0 - % No No Dec 28 ytes/10 50.0 informa informa 2012 0 tion in tion in 3:29 PM leukocy source source roberto in data data Blood by Automat ed count Monocyt 5.4 0.0 - % No No Dec 28 es/100 12.0 informa informa 2012 leukocy tion in tion in 3:29 PM roberto in source source Blood data data by Automat ed count Neutrop 68.7 37.0 - % No No Dec 28 hils.ba 80.0 informa informa 2012 nd tion in tion in 3:29 PM form/10 source source 0 data data leukocy roberto in Blood by Manual count Eosinop 0.70 0.00 - % No No Dec 28 hils/10 7.00 informa informa 2012 0 tion in tion in 3:29 PM leukocy source source roberto in data data Blood by Automat ed count Basophi 0.60 0.00 - % No No Dec 28 ls/100 2.50 informa informa 2012 leukocy tion in tion in 3:29 PM roberto in source source Blood data data by Automat ed count Lymphoc 2.08 0.60 - K/uL No No Dec 28 ytes/10 3.40 informa informa 2012 0 tion in tion in 3:29 PM leukocy source source roberto in data data Blood by Automat ed count Monocyt 0.46 0.00 - K/uL No No Dec 28 es/100 0.90 informa informa 2012 leukocy tion in tion in 3:29 PM roberto in source source Blood data data by Automat ed count Neutrop 5.82 2.00 - K/uL No No Dec 28 hils.ba 6.90 informa informa 2012 nd tion in tion in 3:29 PM form/10 source source 0 data data leukocy roberto in Blood by Manual count Eosinop 0.06 0.00 - K/uL No No Dec 28 hils/10 0.70 informa informa 2012 0 tion in tion in 3:29 PM leukocy source source roberto in data data Blood by Automat ed count Basophi 0.05 0.00 - K/uL No No Dec 28 ls/100 0.20 informa informa 2012 leukocy tion in tion in 3:29 PM roberto in source source Blood data data by Automat ed count Manual NOT No No No No Dec 28 Diff INDICAT informa informa informa informa 2012 ED tion in tion in tion in tion in 3:29 PM source source source source data data data data Urinalysis complete panel in Urine Observa Value Referen Units Interpr Notes Date tion ce etation Range Color LT. NL: ative No No Dec 28 of YELL Negativ informa informa 2011 Urine e tion in tion in 2:28 PM source source data data Appeara CLEAR NL: ative No No Dec 28 nce of Negativ informa informa 2011 Urine e tion in tion in 2:28 PM source source data data Glucose NEG NL: ative No No Dec 28 Negativ informa informa 2011 [Mass/v e tion in tion in 2:28 PM olume] source source in data data Urine by Test strip Bilirub NEG NL: ative No No Dec 28 in Negativ informa informa 2012 [Presen e tion in tion in 2:28 PM ce] in source source Urine data data by Test strip Ketones NEG NL: ative No No Dec 28 Negativ informa informa 2012 [Presen e tion in tion in 2:28 PM ce] in source source Serum data data or Plasma Specifi 1.020 NL: 1.030 No No Dec 28 c 1.00 >= informa informa 2012 gravity 1.030 tion in tion in 2:28 PM of source source Urine data data Hemoglo NEG NL: ative No No Dec 28 bin Negativ informa informa 2011 [Presen e tion in tion in 2:28 PM ce] in source source Urine data data by Test strip pH of 7.0 NL: NL: No No Dec 28 Urine informa informa 2012 by Test tion in tion in 2:28 PM strip source source data data Protein NEG NL: ative No No Dec 28 Negativ informa informa 2011 [Presen e tion in tion in 2:28 PM ce] in source source Urine data data by Test strip Urobili 0.2 NL: 0.2 -_1.0 No No Dec 28 nogen - 1.0 informa informa 2011 [Mass/v tion in tion in 2:28 PM olume] source source in data data Urine by Test strip Nitrite NEG NL: ative No No Dec 28 Negativ informa informa 2011 [Presen e tion in tion in 2:28 PM ce] in source source Urine data data by Test strip Leukocy NEG NL: ative No No Dec 28 roberto Negativ informa informa 2011 [#/volu e tion in tion in 2:28 PM me] in source source Blood data data by Automat ed count MICROSC See No Below_ No No Dec 28 OPIC informa informa informa 2011 tion in tion in tion in 2:28 PM source source source data data data Leukocy NEGATIV NL: ATIVE No No Dec 28 roberto E NEGATIV informa informa 2011 [#/volu E tion in tion in 2:28 PM me] in source source Blood data data by Automat ed count Erythro NEGATIV NL: ATIVE No No Dec 28 cytes E NEGATIV informa informa 2011 [#/volu E tion in tion in 2:28 PM me] in source source Blood data data by Automat ed count Epithel NEGATIV NL: ATIVE No No Dec 28 ial E NEGATIV informa informa 2011 cells E tion in tion in 2:28 PM [#/area source source ] in data data Urine sedimen t by Microsc opy high power field Bacteri NEGATIV NL: ATIVE No No Dec 28 a E NEGATIV informa informa 2011 [#/area E tion in tion in 2:28 PM ] in source source Urine data data sedimen t by Microsc opy high power field Mucus NEGATIV NL: ATIVE No No Dec 28 [Presen E NEGATIV informa informa 2011 ce] in E tion in tion in 2:28 PM Urine source source sedimen data data t by Light microsc opy Yeast NEGATIV NL: ATIVE No No Dec 28 [Presen E NEGATIV informa informa 2011 ce] in E tion in tion in 2:28 PM Unspeci source source fied data data specime n by Wet prepara tion Casts NEGATIV NL: ATIVE No No Dec 28 E NEGATIV informa informa 2011 E tion in tion in 2:28 PM source source data data Crystal NEGATIV NL: ATIVE No No Dec 28 s E NEGATIV informa informa 2012 [type] E tion in tion in 2:28 PM in source source Urine data data sedimen t by Light microsc opy METH OF VOIDED No No No No Dec 28 ROBERTH informa informa informa informa 2012 tion in tion in tion in tion in 2:28 PM source source source source data data data data CULTURE NOT No No No No Dec 28 SETUP INDIC informa informa informa informa 2012 tion in tion in tion in tion in 2:28 PM source source source source data data data data
--- OUTSIDE RECORDS SUMMARY | 2016-10-03 17:38 | External Medical Summary Rpt ---
Demographics Preferred Language Turkish Marital Status Unknown Confucianist Affiliation Unknown Race Unknown Ethnic Group Unknown Author Author , Organization [employer] Address Unknown Phone Unavailable Purpose Continuity of Care Document - 07-04-1996 through 2016 Immunization Name Date Route CVX Reacti Commen Provid Is Given on t er Refuse d Td Histor H109 No (adult 1996 ical ), Inform adsorb ation ed - Source Unspec ified
--- OUTSIDE RECORDS SUMMARY | 2016-10-03 17:38 | External Medical Summary Rpt ---
Demographics Preferred Language Mohawk Marital Status Unknown Anabaptism Affiliation Unknown Race Unknown Ethnic Group Unknown Author Author , Organization [employer] Address Unknown Phone Unavailable Purpose Continuity of Care Document - 07-04-1996 through 2016 Immunization Name Date Route CVX Reacti Commen Provid Is Given on t er Refuse d Td Histor H109 No (adult 1997 ical ), Inform adsorb ation ed - Source Unspec ified
[2016-10-03 17:47] LABS: URINE BILIRUBIN - DIPSTICK NEGATIVE (NEG); URINE BLOOD NEGATIVE (NEG)
[2016-10-03] MEDS ORDERED: BACTROBAN2% TP (18:02)
[2016-10-03] MEDS ORDERED: KEFLEX 500MG.500 MG PO (18:02)
[2016-10-03 18:13] VITALS: BP 139/100
== END 2016-10-03 18:14 | disposition home or self-care (01) ==
LOC: ER 17:09
PROVIDERS: Emergency Medicine
DX: M25.562 Pain in left knee (principal); S20.91XA Abrasion of unspecified parts of thorax, initial encounter; S80.212A Abrasion, left knee, initial encounter

== ENCOUNTER 2017-04-05 12:18 | Emergency (ER) | payer MEDICAID ==
[~2017-04-05] VITALS: Ht 180.3 cm; Wt 104.3 kg
[~2017-04-05 12:18] MED LIST changes: +BACTROBAN2% TP; +COLCRYS0.6 M1 PO; +KEFLEX 500MG.500 MG PO
--- OUTSIDE RECORDS SUMMARY | 2017-04-05 12:28 | External Medical Summary Rpt | CCD ---
Author Author , MONICO MARC Address Unknown Phone [email or web address] Purpose Continuity of Care Document - 12-29-2011 through 2016 Problems Code Diagnosis DOS Provider Status F17.210 NICOTINE 01-26-2017 DEPENDENCE, CIGARETTES, UNCOMPLICAT ED F31.9 BIPOLAR 01-26-2017 DISORDER, UNSPECIFIED G89.29 OTHER 01-26-2017 CHRONIC PAIN I10 ESSENTIAL 01-26-2017 (PRIMARY) HYPERTENSIO N M54.16 RADICULOPAT 01-26-2017 HY, LUMBAR REGION R20.0 ANESTHESIA 01-26-2017 OF SKIN Z88.8 ALLERGY 01-26-2017 STATUS TO OTHER DRUGS, MEDICAMENTS AND BIOLOGICAL SUBSTANCES STATUS E83.42 Hypomagnese 07-25-2016 rojelio 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 E87.6 Hypokalemia 07-25-2016 F10.129 Alcohol 07-25-2016 abuse with intoxicatio n, unspecified F14.10 Cocaine 07-25-2016 abuse, uncomplicat ed F17.200 Nicotine 07-25-2016 dependence, unspecified , uncomplicat ed G93.41 Metabolic 07-25-2016 encephalopa thy J18.9 Pneumonia, 07-25-2016 unspecified organism J96.00 Acute [...] encounter W19.XXXA Unspecified 07-25-2016 fall, initial encounter M79.605 PAIN IN LEFT LEG T14.8 OTHER INJURY OF UNSPECIFIED BODY REGION Results Labs Lab Lab Date Result Refere Interp Status Commen Order Detail nces retati t Range on Lactate Bld-sCnc (02-13-2017 19:55) Lactate 1.0 complet 017 mmol/L ed Bld-sCn 19:55 c Bacteria XXX Anaerobe+Aerobe Cult (02-13-2017 19:51) Bacteri [id number] complet a XXX 017 06 No ed Anaerob 19:51 growth e+Aerob (qualif e Cult ier value) SCT NGB6 NO GROWTH DAY 5. L SPECIME [id number] complet N 017 03 ed CONTAIN 19:51 blood ER volume INFO: estimat ion (proced ure) SCT BVA BLOOD CULTURE VOLUME ACCEPTA BLE L SPECIME BCSET complet N 017 AEROBIC ed CONTAIN 19:51 AND ER ANAEROB INFO: IC BLOOD CULTURE BOTTLES L CRP SerPl-mCnc (02-13-2017 19:51) CRP < 0.1 0-0.9 complet SerPl-m 017 mg/dL ed Cnc 19:51 CK SerPl-cCnc (02-13-2017 19:51) CK 424 U/L 49-320 complet SerPl-c 017 ed Cnc 19:51 ESR Bld Qn (02-13-2017 19:37) ESR Bld 8 mm/hr 0-11 complet Qn 017 ed 19:37 Drugs identified in Urine by Screen method (10-04-2016 13:40) Ampheta NEGATIV <1000 complet mine 017 E ed [Presen 13:40 ce] in Urine by Screen method 11-Hydr NEGATIV <50 complet oxy 017 E ed delta-9 13:40 tetrahy drocann abinol [Presen ce] in Unspeci fied specime n Drugs identified in Urine by Screen method (09-20-2016 16:00) Ampheta NEGATIV <1000 complet mine 017 E ed [Presen 16:00 ce] in Urine by Screen method 11Hydr NEGATIV <50 complet oxy 017 E ed [...] 78 complet Ur-mCnc 017 mg/dL ed 15:38 Ca-I SerPl ISE-sCnc (07-16-2016 02:21) Ca-I 4.3 4.6-5.1 complet SerPl 017 mg/dL ed ISE-sCn 02:21 c Magnesium SerPl-mCnc (07-16-2016 02:21) Magnesi 1.8 1.9-2.4 complet um 017 mg/dL ed SerPl-m 02:21 Cnc Phosphate SerPl-mCnc (07-16-2016 02:21) Phospha 4.2 2.5-4.5 complet te 017 mg/dL ed SerPl-m 02:21 Cnc MDRO Wnd (07-15-2016 04:38) Bacteri [id number] complet a XXX 017 00 not ed Anaerob 04:38 isolate e+Aerob d e Cult (qualif ier value) SCT NMDR NO MULTI DRUG RESISTA NT ORGANIS MS ISOLATE D L CC XXX NOTAP complet VC-aCnc 017 NOT ed 04:38 APPLICA BLE L Phosphate SerPl-mCnc (07-14-2016 22:58) Phospha 3.0 2.5-4.5 complet te 017 mg/dL ed SerPl-m 22:58 Cnc Prealb SerPl-mCnc (07-14-2016 22:58) Prealb 03-15-2 20.0 20-41 complet SerPl-m 017 mg/dL ed [...] complet 017 mmol/L ed Bld-sCn 20:32 c Ethanol Bld GC-mCnc (07-14-2016 14:14) Ethanol 225.0 NEGATIV complet Bld 017 mg/dL E ed GC-nc 14:14 Lactate Bld-sCnc (07-14-2016 14:14) Lactate 2.4 complet 017 mmol/L ed Bld-sCn 14:14 c CK SerPl-cCnc (07-14-2016 14:14) CK 496 U/L 49-320 complet SerPl-c 017 ed Cnc 14:14 Salicylates SerPl-sCnc (07-14-2016 14:14) Salicyl < 0.3 0-25.0 complet ates 017 mg/dL ed SerPl-s 14:14 Cnc Acetamin SerPl-mCnc (07-14-2016 14:14) Acetami < 15.0 10-30 complet n 017 ug/mL ed SerPl-m 14:14 Cnc Comprehensive metabolic 1998 panel in Serum or [...] If complet 012 patient ed 15:20 is Pat n, multipl y GFR by 1.120. [...]
--- OUTSIDE RECORDS SUMMARY | 2017-04-05 12:28 | External Medical Summary Rpt | CCD ---
Author Author , MONICO MARC Address Unknown Phone [email or web address] Purpose Continuity of Care Document - 12-29-2011 [...] Bacteria XXX Anaerobe+Aerobe Cult (02-13-2017 19:51) Bacteri [id number] complet a XXX 017 06 No ed Anaerob 19:51 growth e+Aerob (qualif e Cult ier value) SCT NGB6 NO GROWTH DAY 5. L SPECIME [id number] complet N 017 03 ed CONTAIN 19:51 [...] 02:21 Cnc MDRO Wnd (07-15-2016 04:38) Bacteri [id number] complet a XXX 017 00 not ed [...] hils/10 012 7.00 ed 0 15:20 leukocy roberot in Blood by Automat ed count Basophi [...]
--- OUTSIDE RECORDS SUMMARY | 2017-04-05 12:29 | External Medical Summary Rpt | CCD ---
Author Author [facility] Organization [facility] Address Unknown Phone Unavailable Purpose Continuity of Care Document - through 2016
--- OUTSIDE RECORDS SUMMARY | 2017-04-05 12:29 | External Medical Summary Rpt ---
Author Author ALLINELL [employer], MONICO [employer] Organization [employer] Address Unknown Phone Unavailable Results CBC W Auto Differential panel in Blood Observa Value Referen Units Interpr Notes Date tion ce etation Range Basophils 0 - 0.2 K/MM3 Normal No Sep 15 informati 2016 6:35 [#/volume on in PM ] in source Blood by data Automated count Basophils 0.1 - 2.0 % Normal No Sep 15 /100 informati 2016 6:35 leukocyte on in PM s in source Blood by data Automated count Eosinophi 0.0 - 0.4 K/mm3 Normal No Sep 15 ls informati 2016 6:35 [#/volume on in PM ] in source Blood by data Automated count Eosinophi 0.1 - % Normal No Oct 14 ls/100 12.0 informati 2016 6:35 leukocyte on in PM s in source Blood by data Automated count Granulocy 1.3 - 8.0 K/mm3 Normal No Sep 15 roberto informati 2017 6:35 [#/volume on in PM ] in source Blood by data Automated count Granulocy 37.0 - % Normal No Sep 15 roberto/100 80.0 informati 2016 6:35 leukocyte on in PM s in source Blood by data Automated count Hematocri 42.0 - % Normal No Oct 14 t [Volume 52.0 informati 2016 6:35 on in PM Fraction] source of Blood data Hemoglobi 14.1 - g/dL Normal No Oct 14 n 18.0 informati 2017 6:35 [Mass/vol on in PM ume] in source Blood data Lymphocyt 0.7 - 4.5 K/mm3 Normal No Oct 14 es informati 2016 6:35 [#/volume on in PM ] in source Unspecifi data ed specimen by Automated count Lymphocyt 10 - 50 % Normal No Oct 14 es informati 2016 6:35 [#/volume on in PM ] in source Unspecifi data ed specimen by Automated count Erythrocy 27 - 31.2 pg High No Oct 14 te mean informati 2016 6:35 corpuscul on in PM ar source hemoglobi data n [Entitic mass] Erythrocy 31.8 - g/dl Normal No Sep 15 te mean 35.4 informati 2017 6:35 corpuscul on in PM ar source hemoglobi data n concentra tion [Mass/vol ume] by Automated count Erythrocy 82.2 - fl Normal No Sep 15 te mean 97.8 informati 2016 6:35 corpuscul on in PM ar volume source [Entitic data volume] by Automated count Monocytes 0.1 - 1.0 K/mm3 Normal No Sep 15 informati 2016 6:35 [#/volume on in PM ] in source Blood by data Automated count Monocytes 1.7 - 9.3 % Normal No Sep 15 /100 informati 2017 6:35 leukocyte on in PM s in source Blood by data Automated count Platelet 7.4 - fl Low No Oct 14 mean 10.4 informati 2016 6:35 volume on in PM [Entitic source volume] data in Blood by Automated count Platelets 142 - 424 K/mm3 Normal No Sep 15 informati 2016 6:35 [#/volume on in PM ] in source Blood data Erythrocy 4.6 - 6.2 M/mm3 Normal No Sep 15 roberto informati 2017 6:35 [#/volume on in PM ] in source Amniotic data fluid Erythrocy 11.5 - % Normal No Sep 15 te 17.5 informati 2016 6:35 distribut on in PM ion width source [Entitic data volume] by Automated count Leukocyte 4.8 - K/MM3 Normal No Sep 15 s 10.8 informati 2016 6:35 [#/volume on in PM ] in source Blood data Erythrocyte sedimentation rate by Westergren method Observa Value Referen Units Interpr Notes Date tion ce etation Range Erythrocy 0 - 15 mm/hr Normal No Sep 15 te informati 2017 6:35 sedimenta on in PM tion rate source by data Westergre n method Basic metabolic panel in Blood Observa Value Referen Units Interpr Notes Date tion ce etation Range Urea 7 - 18 mg/dL Normal No Sep 15 nitrogen informati 2016 6:35 [Mass/vol on in PM ume] in source Serum or data Plasma Calcium 8.5 - mg/dL Normal No Sep 15 [Mass/vol 10.1 informati 2016 6:35 ume] in on in PM Serum or source Plasma data Chloride 98 - 107 mmoL/L Normal No Oct 14 [Moles/vo informati 2016 6:35 lume] in on in PM Serum or source Plasma data Carbon 21.0 - mmoL/L Normal No Oct 14 dioxide, 32.0 informati 2016 6:35 total on in PM [Moles/vo source lume] in data Serum or Plasma Creatinin 0.70 - mg/dL Normal No Oct 14 e 1.30 informati 2016 6:35 [Mass/vol on in PM ume] in source Serum or data Plasma Creatinin 50 - 200 ML/MIN Normal No Oct 14 e renal informati 2016 6:35 clearance on in PM source predicted data by Cockcroft -Gault formula Estimated >60 ML/MIN No REFERENCE Oct 14 informati RANGE: 2017 6:35 glomerula on in >60 PM r source ML/MIN/1. filtratio data 73 SQUARE n rate METERSIf (GF this patient is -A merican, then multiply theresult by 1.210. Glucose 74 - 106 mg/dL Normal No Oct 14 [Mass/vol informati 2016 6:35 ume] in on in PM Serum or source Plasma data Potassium 3.5 - 5.1 mmoL/L Normal No Oct 14 informati 2016 6:35 [Moles/vo on in PM lume] in source Serum or data Plasma Sodium 136 - 145 mmoL/L Normal No Oct 14 [Moles/vo informati 2016 6:35 lume] in on in PM Serum or source Plasma data CRP Observa Value Referen Units Interpr Notes Date tion ce etation Range CRP 0.0 - 0.9 MG/DL High No Oct 14 informati 2016 6:35 on in PM source data Urate [Mass/volume] in Serum or Plasma Observa Value Referen Units Interpr Notes Date tion ce etation Range Urate 2.6 - 7.2 mg/dL High No Oct 14 [Mass/vol informati 2016 6:35 ume] in on in PM Serum or source Plasma data Opiates and Oxycodone(GC/MS),U Observa Value Referen Units Interpr Notes Date tion ce etation Range Oxycodo Negativ Cutoff= No No Test Oct 04 ne/Oxym e 100 informa informa include 2017 orph tion in tion in s 1:40 PM source source Oxycodo data data ne and [employer] honePer formed at: [facility] [id number] [facility], [place], [place] [address]Lab Directo r: Jamaal Rolle MD, Phone: [phone] Opiates Negativ Cutoff= No No Opiate Jona 5 e 100 informa informa test 2017 tion in tion in include 1:40 PM source source s data data Codeine , Morphin e, Hydromo rphone, Hydroco done. Drugs identified in Urine by Screen method Observa Value Referen Units Interpr Notes Date tion ce etation Range Positive urine drug screen samples are stored for 7 days. Contact the Lab if confirmation of positives is needed. Ampheta NEGATIV <1000 ng/mL No No Jona 5 mine E informa informa 2017 [Presen tion in tion in 1:40 PM ce] in source source Urine data data by Screen method Barbitura <200 ng/mL No No Jona 5 roberto informati informati 2017 1:40 [Mass/vol on in on in PM ume] in source source Urine by data data Screen method Benzodiaz 200 ng/mL ng/mL No No Jona 5 epines informati informati 2017 1:40 [Mass/vol on in on in PM ume] in source source Serum or data data Plasma by Screen method Cocaine <300 ng/g No No Jona 5 [Mass/vol informati informati 2017 1:40 ume] in on in on in PM Unspecifi source source ed data data specimen Methadone <300 ng/mL No No Jona 5 informati informati 2017 1:40 [Mass/vol on in on in PM ume] in source source Unspecifi data data ed specimen Opiates <300 ng/mL No No Jona 5 [Mass/vol informati informati 2017 1:40 ume] in on in on in PM Unspecifi source source ed data data specimen Phencycli <25 ng/mL No No Jona 5 dine informati informati 2017 1:40 [Mass/vol on in on in PM ume] in source source Unspecifi data data ed specimen 11-Hydr NEGATIV <50 ng/mL No No Jona 5 oxy E informa informa 2017 delta-9 tion in tion in 1:40 PM source source tetrahy data data drocann [...] No No September 20 [Mass/vol informati informati 2017 4:00 ume] in on in on in PM Unspecifi source source ed data data specimen Methadone <300 ng/mL No No September 20 informati informati 2017 4:00 [Mass/vol on in on in PM ume] in source source Unspecifi data data ed specimen Opiates <300 ng/mL No No September 20 [Mass/vol informati informati 2017 4:00 ume] in on in on in [...] Plasma Potassi 4.0 3.50 - mmol/L No No Dec 28 um 5.10 informa informa 2011 [Moles/ tion in tion in 3:43 PM volume] source source in data data Serum or Plasma Chlorid 100 98 - mmol/L No No Dec 28 e 107 informa informa [...] or Plasma AGE 36 No yrs No No Dec 28 informa informa informa 2011 [...] Asparta 19 15 - 37 IU/L No Dec 28 te informa informa 2012 aminotr tion in tion in 3:43 PM ansfera source source se data data [Enzyma tic activit y/volum e] in Serum or Plasma Alanine 35 30 - 65 IU/L No Dec 28 informa informa 2011 aminotr [...] Dec 28 Range: informa informa informa informa 2011 60 tion in tion in tion in [...] No Dec 28 roberto 10.20 informa informa 2012 [#/volu tion in tion in 3:29 PM me] in source source Blood data data by Automat ed count Erythro 5.05 4.04 - M/uL No No Dec 28 cytes 6.13 informa informa 2012 [#/volu tion in tion in 3:29 PM me] in source source Blood data data by Automat ed count Hemoglo 15.4 12.20 - g/dL No Dec 28 bin 18.10 informa informa 2012 [Mass/v tion in tion in 3:29 PM olume] source source in data data Blood Hematoc 44 37.70 - % No Dec 28 rit 53.70 informa informa 2012 [Volume tion in tion in 3:29 PM source source Fractio data data n] of Blood by Automat ed count Erythro 86.9 80.0 - fL No Dec 28 cyte 97.0 informa informa 2012 mean tion in tion in 3:29 PM corpusc source source ular data data volume [Entiti c volume] by Automat ed count Erythro 30.5 27.0 - pg No No Dec 28 cyte 31.20 informa informa 2012 mean tion in tion [...] count Platele 186 142 - K/uL No Dec 28 ts 424 informa informa 2012 [#/volu tion in tion in 3:29 PM me] in source source Blood data data by Automat ed count Lymphoc 24.6 10.0 - % No Dec 28 ytes/10 50.0 informa informa [...] count Neutrop 68.7 37.0 - % No Dec 28 hils.ba 80.0 informa informa [...] No Dec 28 bin Negativ informa informa 2012 [Presen e tion [...] Dec 28 nogen - 1.0 informa informa 2012 [Mass/v tion in tion in 2:28 PM [...] Dec 28 ial E NEGATIV informa informa 2012 cells E tion in tion in 2:28 [...]
--- OUTSIDE RECORDS SUMMARY | 2017-04-05 12:29 | External Medical Summary Rpt | CCD ---
Demographics Preferred Language Upper Sorbian Marital Status Unknown Mormon Affiliation Unknown Race Unknown Ethnic Group Unknown Author Author , MARK MARC Address Unknown Phone [email or web address] Immunization Name Date Rout CVX Reac Dose Comm Prov Is Faci e tion ent ider Refu lity Give sed n Td 03-0 9 999 Hist H109 No H109 (fabian 5-19 oric lt), 97 al Info adso rmat rbed ion - Sour ce Unsp ecif ied
--- OUTSIDE RECORDS SUMMARY | 2017-04-05 12:29 | External Medical Summary Rpt | CCD ---
Demographics Preferred Language Frisian Marital Status Unknown Hinduism Affiliation Unknown Race Unknown Ethnic Group Unknown Author Author , MARK MARC Address Unknown Phone [email or web address] Immunization Name Date Rout CVX Reac Dose Comm Prov Is Faci e tion ent ider Refu lity Give sed n Td 03-0 9 999 Hist H109 No H109 (fabian 5-19 oric lt), 97 al Info adso rmat rbed ion - Sour ce Unsp ecif ied
--- OUTSIDE RECORDS SUMMARY | 2017-04-05 12:29 | External Medical Summary Rpt ---
[...] [employer] honePer formed at: [facility] [id number] [facility], [place], [place] [address]Lab Directo r: Jamaal Rolle MD, Phone: [phone] Opiates Negativ Cutoff= No No Opiate Jona [...] NEGATIV NL: ATIVE No No Dec 28 roebrto E NEGATIV informa informa 2011 [#/volu E [...]
[2017-04-05 13:27] VITALS: BP 154/81
--- NOTE | 2017-04-05 13:31 | Emergency Room Report ---
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 STATES PAIN IN RIGHT TOP OF FOOT, "I THINK IT IS BROKEN." Onset of symptoms date/time:04/04/1708/16/2199 or onset unknown for: Treatment Prior to Arrival: TIN FLIPPER Provided by: Sepsis Risk Assessment: Temp: 98.6 B/P: 154/81 MAP: 105 Pulse: 119 Resp: 20 Recent fever? N Clinical Suspician of Infection? N Mental Status: 1 - Regular (Normal Baseline) Sepsis Risk:Possible Sepsis Risk Have you (or family members/close friends) recently traveled outside the [place]? N If Yes, where/when: Have you had exposure to infectious disease within the past month? TB? Other? Specify: Kicked a wall because he was angry. Right midfoot pain w/o weakness or numbness or tingling. Is on Percocet 7.5 per PCP. Declines pain meds. Ambulatory in ED. ALLERGIES Coded Allergies: codeine (Intermediate, I-RASH 10/28/15) latex (I-RASH 10/28/15) Home Medications Active Scripts HYDROCODONE 5MG/APAP 325MG (Hydrocodon-Acetaminophen 5-325) 1 TAB PO BID PRN pain #60 TAB Prov: 12/15/15 MUPIROCIN 2% (Bactroban Oint) 1 ARTURO TP BID #1 TUBE Prov: 10/03/16 CEPHALEXIN (Keflex 500MG Capsule) 500 MG PO Q8H #30 CAP Prov: 10/03/16 Colchicine (Colcrys 0.6MG) 0.6 MG PO DIRECTED PRN gout pain #4 TAB Prov: 10/14/16 Diclofenac Sodium 75 MG PO BID PRN pain #60 ECT Ref 2 Prov: 10/13/15 Reported Medications Gabapentin (Gabapentin 800MG) 800 MG PO QID #90 Amlodipine Besylate (Norvasc) 10 MG PO DAILY Omeprazole (Omeprazole 40MG) 40 MG PO DAILY TIZANIDINE HCL (Zanaflex) 4 MG PO Q8 [place] Carbonate ([place] Carb 300MG Capsule) 300 MG PO BID Ibuprofen (MOTRIN 800MG (generic) Tablet) 800 MG PO TIDP PRN PAIN HYDROCODONE/ACETAMINOPHEN ([place] 10-325 Tablet) 1 TAB PO BID MISCELLANEOUS (UNKNOWN MEDICATION) 200 MG PO TIDP PRN ANGER MANAGEMENT History Medical History General CAD? No Angina: No UT: No Hypertension? Yes Hyperlipidemia? No CHF? No DVT? No PE? No COPD? No Asthma? No Anemia? No GERD? No Gastric ulcers? No GI Bleed? No Hernia? No Thyroid Problems? No Hypothyroidism? No CVA? No Seizures? No Diabetes? No Insulin Dependent: No Insulin Pump: No Home FSBS? No Renal Insuffiency? No End Stage Renal Disease? No UTI? No Stones? No BPH? No GB Disease: No Nephritic Syndrome? No Asplenia? No Hepatitis? No Sickle Cell Disease? No Arthritis? Yes Migraines? No Cataracts? No Glaucoma? No MRSA? No HIV? No TB? No Anxiety? No Depression? No Cancer? No More? Yes Additional hx: OSTEOARTHRITIS Immunization Hx DT/Tetanus > 10 Years Ago Surgical Hx Previous Surgery?Y R SHOULDLER L SHOULDER L FOOT Tonsils And/Or Adenoids Social History Smoking Hx Smoker: Current Every Day Smoker Tobacco: Yes Type Cigarettes Packs/day < 1 Pack Alcohol Alcohol: Yes Review of Systems All Other Systems Reviewed and Negative Musculoskeletal see HPI (also chronic pain syndrome) Physical Exam Vital Signs Vital Signs Date Time Temp Pulse Resp B/P Pulse O2 O2 Flow FiO2 Ox Delivery Rate 04/05 1327 98.6 119 20 154/81 100 12 1235 98.6 119 20 154/81 100 General Appearance normal appearance, WD/WN, no apparent distress Eye Exam - bilateral eye normal exam, bilateral eye PERRL Neck normal inspection, non-tender, supple, full range of motion Respiratory Status Yes: trachea midline, chest symmetrical. No: respiratory distress. Cardiovascular no peripheral edema Extremities normal range of motion, normal capillary refill, no pedal edema, subjective pain and some redness, right midfoot, no crepitus, deformities, or stepoffs noted. Brisk CR, no discoloration of toes, warm with FROM and brisk pulses. Fully sensate, ambulatory in ED but with c/o discomfort despite stating he doesn't want Naproxen offered. Strength 5 Upper Ext (L), 5 Upper Ext (R), 5 Lower Ext (L), 5 Lower Ext (R) Neurologic alert, normal exam, no motor/sensory deficits, oriented x 3 Glascow Coma Scale Glascow Coma Scale Response Value EYE response: 4 Spontaneously 4 MOTOR response: 6 OBEYS 6 VERBAL response: 5 Oriented & Converses 5 Total 15 Skin intact, normal color Medical Decision Making LABS/Meds/Orders Pt receiving controlled substance in ED? No Results/Orders Orders Procedure Date/time Status STABILIZE JOINT 04/05 1325 Active FOOT-RT-3 VIEWS 04/05 1242 Active XRAY/CT/US XRAY/CT/US XRAY foot XR interpretation by reviewed by me, discussed w/radiologist Xray Results normal/NAD, no fracture seen Departure Departure Time of Disposition 1328 Disposition DC Home or Self Care(routine) Clinical Impression Primary Impression: Contusion of right foot Condition STABLE Referrals Meron HO,Jamaal Mack (Family) Patient Instructions Contusion Additional Instructions Continue pain medications as prescribed by PCP Dr. Chance, see Dr. Chance in one to seven days for follow up. Discharge Counseling Counseled pt/family regarding diagnosis, test results, medications/RX, home care, follow up needs ED Critical Care Critical Care No at 1330
--- NOTE | 2017-04-05 14:21 | RADIOLOGY REPORT PS360 ---
FOOT-RT-3 VIEWS HISTORY: KICKED A WALL LAST NIGHT ORDERING PHYSICIAN: Emmy Mejia MD PATIENT AGE: 41 years COMPARISON: None FINDINGS: No fracture or dislocation. No lytic or blastic change. There is normal mineralization.. Osteoarthritic changes are present first metatarsophalangeal joint. There is normal alignment. 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
== END 2017-04-05 14:13 | disposition home or self-care (01) ==
LOC: ER 12:18
PROC: 2W3QX1Z Immobilization of Right Lower Leg using Splint (ICD-10-PCS; principal; 2017-04-05)
DX: S90.31XA Contusion of right foot, initial encounter (principal); W22.09XA Striking against other stationary object, initial encounter; Y92.015 Private garage of single-family (private) house as the place of occurrence of the external cause; I10 Essential (primary) hypertension; Z91.040 Latex allergy status; F17.210 Nicotine dependence, cigarettes, uncomplicated

== ENCOUNTER → 2017-04-12 | Emergency (ER) | payer MEDICAID ==
[~2017-04-12] VITALS: Ht 180.3 cm; Wt 108.9 kg
--- OUTSIDE RECORDS SUMMARY | 2017-04-12 15:09 | External Medical Summary Rpt | CCD ---
Author Author , MONICO MARC Address Unknown Phone Purpose Continuity of Care Document - 12-29-2011 [...] initial encounter M79.605 PAIN IN LEFT LEG S90.31XA CONTUSION OF RIGHT FOOT, INITIAL ENCOUNTER T07.XXXA UNSPECIFIED MULTIPLE INJURIES, INITIAL ENCOUNTER T14.8 OTHER INJURY OF UNSPECIFIED BODY REGION Results Labs Lab Lab Date Result Refere Interp Status Commen Order Detail nces retati t Range on Lactate Bld-sCnc (02-13-2017 19:55) Lactate 1.0 complet 017 mmol/L ed Bld-sCn 19:55 c Bacteria XXX Anaerobe+Aerobe Cult (02-13-2017 19:51) Bacteri [id number] complet a XXX 017 06 No ed Anaerob 19:51 growth e+Aerob (qualif e Cult ier value) SCT NGB6 NO GROWTH DAY 5. L SPECIME [id number] complet N 017 03 ed CONTAIN 19:51 blood ER volume INFO: estimat ion (proced ure) SCT BVA BLOOD CULTURE VOLUME ACCEPTA BLE L SPECIME BCSET complet N 017 AEROBIC ed CONTAIN 19:51 AND ER ANAEROB INFO: IC BLOOD CULTURE BOTTLES L CRP SerPl-mCnc (02-13-2017 19:51) CRP 02-13-2 < 0.1 0-0.9 complet SerPl-m 017 mg/dL ed Cnc 19:51 CK SerPl-cCnc (02-13-2017 19:51) CK 02-13- 424 U/L 49-320 complet SerPl-c 017 ed Cnc 19:51 ESR Bld Qn (02-13-2017 19:37) ESR Bld 02-13-2 8 mm/hr 0-11 complet Qn 017 ed [...] ce] in Urine by Screen method 11-Hydr 05-22-2 NEGATIV <50 complet oxy 017 E ed [...] 02:21 c MDRO Wnd (07-15-2016 04:38) Bacteri [id number] complet a XXX 017 00 not ed [...] in Blood by Automat ed count Manual 08-29-2 NOT complet Diff 012 INDICAT ed 15:20 [...]
--- OUTSIDE RECORDS SUMMARY | 2017-04-12 15:09 | External Medical Summary Rpt | CCD ---
Demographics Preferred Language Danish Marital Status Unknown Shinto Affiliation Unknown Race Unknown Ethnic Group Unknown Author Author , MARK MARC Address Unknown Phone [email or web address] Immunization Name Date Rout CVX Reac Dose Comm Prov Is Faci e tion ent ider Refu lity Give sed n Td 03-0 9 999 Hist H109 No H109 (fabian 5-19 oric lt), 97 al Info adso rmat rbed ion - Sour ce Unsp ecif ied
--- OUTSIDE RECORDS SUMMARY | 2017-04-12 15:09 | External Medical Summary Rpt | CCD ---
Author Author , MONICO MARC Address Unknown Phone [email or web address] Purpose Continuity of Care Document - 12-29-2011 [...] Bacteria XXX Anaerobe+Aerobe Cult (02-13-2017 19:51) Bacteri [id number] complet a XXX 017 06 No ed Anaerob 19:51 growth e+Aerob (qualif e Cult ier value) SCT NGB6 NO GROWTH DAY 5. L SPECIME [id number] complet N 017 03 ed CONTAIN 19:51 [...] 02:21 c MDRO Wnd (07-15-2016 04:38) Bacteri [id number] complet a XXX 017 00 not ed [...] complet ls/100 012 2.50 ed leukocy 15:20 orberto in Blood by Automat ed count Lymphoc [...]
--- OUTSIDE RECORDS SUMMARY | 2017-04-12 15:09 | External Medical Summary Rpt | CCD ---
Demographics Preferred Language Uzbek Marital Status Unknown Christianity Affiliation Unknown Race Unknown Ethnic Group Unknown Author Author , MARK MARC Address Unknown Phone [email or web address] Immunization Name Date Rout CVX Reac Dose Comm Prov Is Faci e tion ent ider Refu lity Give sed n Td 03-0 9 999 Hist H109 No H109 (fabian 5-19 oric lt), 97 al Info adso rmat rbed ion - Sour ce Unsp ecif ied
--- OUTSIDE RECORDS SUMMARY | 2017-04-12 15:10 | External Medical Summary Rpt ---
[...] count Eosinophi 0.1 - % Normal No Sep 15 ls/100 12.0 informati 2016 6:35 leukocyte on [...] data Hemoglobi 14.1 - g/dL Normal No Sep 15 n 18.0 informati 2017 6:35 [Mass/vol on [...] [employer] honePer formed at: [facility] [id number] [facility], [place], [place] [address]Lab Directo r: Jamaal Rolle MD, Phone: [phone] Opiates Negativ Cutoff= No No Opiate Jona [...]
--- OUTSIDE RECORDS SUMMARY | 2017-04-12 15:10 | External Medical Summary Rpt ---
[...] [employer] honePer formed at: [facility] [id number] [facility], [place], [place] [address]Lab Directo r: Jamaal Rolle MD, Phone: [phone] Opiates Negativ Cutoff= No No Opiate Jona [...]
== END ==
LOC: ER 14:33
DX: Z53.21 Procedure and treatment not carried out due to patient leaving prior to being seen by health care provider (principal); B99.8 Other infectious disease